=== PATIENT | female | born 1960 | race Caucasian/White ===

== ENCOUNTER 2019-05-20 06:28 | Observation (INO) | payer OTHER, SELFPAY ==
[2019-05-20] VITALS (7 sets, daily range): BP systolic 124–140; BP diastolic 53–77; PULSE 61–69; RESP 8–18; TEMP 36.1–37.1; O2SAT 96–100; BMI 25.7
--- NOTE | ~2019-05-20 | US_ITS ---
EXAMINATION: US right upper quadrant DATE: 05/20/2019 07:48 INDICATION: Epigastric abdominal pain. TECHNIQUE: Multiple grayscale and Doppler ultrasound images of the abdomen were obtained. COMPARISON: Ultrasound abdomen 01/11/2014 FINDINGS: The visualized portions of the head, body, and tail of the pancreas are normal. The liver i s normal without focal lesion. No liver surface nodularity. The gallbladder is absent. The common josé miguel t is normal and measures 10 mm. There is normal flow in main portal vein. IMPRESSION: 1. Normal right upper quadrant ultrasound status post cholecystectomy. Reviewed, dictated and finalized at location A. GROUND ATTENDANT
--- NOTE | ~2019-05-20 | MR_ITS ---
EXAMINATION: MR MRCP wo/w con/w 3D wo ind DATE: 05/21/2019 09:52 INDICATION: Acute pancreatitis. TECHNIQUE: Magnetic resonance imaging (MRI) of the abdomen was performed without and with 13 mL Multi Jyoti intravenous contrast. Sequences included coronal T2-weighted FS FSE, coronal T2-weighted FSE, a xial T1-weighted LAVA, coronal FS FIESTA, axial dual-echo T1-weighted SPGR, coronal lava-FLEX, sagitt al T2-weighted FSE, axial T2-weighted FSE, and axial DWI. Thick-slab T2-weighted FSE images were obta ined for magnetic resonance cholangiopancreatography (MRCP). Maximum intensity projection 3-D reconst ructions of the volumetric data were created by the technologist. Postcontrast sequences included cor onal LAVA-flex and time course of axial T1-weighted LAVA. COMPARISON: Ultrasound 05/20/2019 FINDINGS: ABDOMEN MRI: The liver is normal. There are changes of cholecystectomy with residual gallbladder neck with 3 mm stone. The spleen, pancreas, adrenal glands, and kidneys are normal. There are no dilated loops of bowel. There are no pathologically enlarged lymph nodes. There is no free intraperitoneal fl uid. ABDOMEN MRCP: The common duct is normal and measures 9 mm. No choledocholithiasis. IMPRESSION: 1. No choledocholithiasis. 2. 3 mm stone in the residual gallbladder neck status post cholecystectomy. Reviewed, dictated and finalized at location A. ICAL REGISTERED NURSE
--- NOTE | ~2019-05-20 | XR_ITS ---
EXAMINATION: XR chest 2V DATE: 05/20/2019 07:29 INDICATION: Chest pressure. TECHNIQUE: Frontal and lateral views of the chest were obtained. COMPARISON: Chest 2 views 06/10/2015 FINDINGS: The chest demonstrates clear lungs without pneumonia, pleural effusion, or pneumothorax. Th e heart size is normal. Partially visualized is a stent in the abdomen. IMPRESSION: 1. No acute cardiopulmonary disease. Reviewed, dictated and finalized at location A. S REPRESENTATIVE MEATS
--- NOTE | 2019-05-20 06:41 | ECG_ITS ---
Measurements Intervals [place] Rate: 63 P: 56 [place]: 143 QRS: 23 QRSD: 86 T: 63 QT: 420 QTc: 433 Interpretive Statements SINUS RHYTHM WITH SINUS ARRHYTHMIA BASELINE ARTIFACT- I, II, III, AVL, AVF BORDERLINE ECG Electronically Signed On 05-20-2019 7:00:48 PROFESSOR OF PATHOLOGY by Gary Kraft D.O.
[2019-05-20 06:57] LABS: Basophils Percent Auto 0.5 % (0.2-1.2); Eosinophils Absolute Auto 0.1 K/mm3 (0-0.3); Eosinophils Percent Auto 1.4 % (0-4.4); Hematocrit 46.4 % (37.0-47.0); Hemoglobin 15.3 g/dL (12.0-15.0); Immature Granulocyte Absolute 0.01 K/mm3 (0.00-0.031); Immature Granulocyte Percent A 0.1 % (0-0.5); Lymphocytes Absolute Auto 1.46 K/mm3 (0.9-3.2); Lymphocytes Percent Auto 16.6 % (18.3-44.2); Mean Corpuscular Hemoglobin 29.3 pg (26-34); Mean Corpuscular Volume 88.9 fl (80-100); Mean Platelet Volume 10.3 fl (7.4-10.4); Monocytes Absolute Auto 0.7 K/mm3 (0.1-0.6); Monocytes Percent Auto 8.4 % (2.6-8.5); Neutrophils Absolute Auto 6.4 K/mm3 (1.3-6.7); Platelet Count Result 295 k/mm3 (150-375); Red Blood Count 5.22 M/mm3 (4.2-5.4); Red Cell Distribution Width 13.9 % (11.5-14.5); White Blood Count 8.8 K/mm3 (4.5-10.0)
[2019-05-20 07:11] LABS: Alanine Aminotransferase 28 U/L (4-35); Albumin Level 4.5 g/dL (3.5-5.1); Alkaline Phosphatase 93 U/L (38-126); Aspartate Amino Transferase 31 U/L (14-36); Bilirubin,Total 0.5 mg/dL (0.2-1.3); Blood Urea Nitrogen 24 mg/dL (7-17); Calcium 9.4 mg/dL (8.4-10.2); Carbon Dioxide 27 mmol/L (22-30); Chloride 101 mmol/L (98-107); Estimated Glomerular Filt Rate > 60; Glucose 125 mg/dL (65-105); Potassium 3.9 mmol/L (3.4-5.0); Sodium 139 mmol/L (137-145)
[2019-05-20 07:19] LABS: Lipase 2323 U/L (23-300)
[2019-05-20 07:22] LABS: Prothrombin Time 12.6 Seconds (11.1-14.7); Troponin I < 0.012 ng/mL (0.000-0.034)
[2019-05-20 07:23] LABS: Partial Thromboplastin Time 27.2 SECONDS (22.3-36.8)
--- NOTE | 2019-05-20 08:55 | ED.ABDPAIN ---
HPI - Abdominal Pain General Chief Complaint: Chest Pain Stated Complaint: cp Time Seen by Provider: 05/20/19 06:41 Source: patient Mode of arrival: ambulatory Limitations: no limitations History of Present Illness HPI narrative: Patient is a 58-year-old female who presents to the emergency department complaint of lower chest/epigastric abdominal pain. Patient reports onset of severe pain at 3:00 this morning. Patient has been noticing pressure in that area for the last 5 to 6 days that has been mild in nature. Patient describes the pain she is having currently as a constricting/squeezing pain that has been very colicky in terms of its intensity. Patient denies radiation of pain. She does report some mild left upper quadrant pain today as well. Patient denies any cough, shortness of breath, nausea, vomiting, fever, chills, or sweats. Patient does currently have a bile duct stent in place that is scheduled to be removed on June [address] Graves in [facility]. Patient had that placed a couple of months ago after undergoing cholecystectomy for gangrenous cholecystitis. MD elicited complaint: other (epigastric pain) Pertinent past history: other (recent cholecystectomy and bile duct stent) Onset (ago): day(s) Pain Consistency: colicky Location: epigastric Quality: other (squeezing/constricting) Migration to: no migration Exacerbating factors: nothing Relieving factors: nothing Associated symptoms: denies other symptoms Related Data Home Medications Medication Instructions Recorded Confirmed acyclovir 05/20/19 atorvastatin 05/20/19 diltiazem HCl PO 05/20/19 nitroglycerin mg 05/20/19 potassium chloride meq PO 05/20/19 spironolactone 05/20/19 Allergies Allergy/AdvReac Type Severity Reaction Status Date / Time tetracycline Allergy Mild UNKNOWN Verified 10/08/17 07:48 REACTION Penicillins AdvReac Mild FLUSHING Verified 10/01/17 17:43 Review of Systems Review of Systems: All systems reviewed & are unremarkable except as noted in HPI and below Constitutional: Constitutional: Denies chills, Denies excessive sweating and Denies fever(s) Cardiovascular: Cardiovascular: Reports chest pain Respiratory: Respiratory: Denies cough and Denies dyspnea Gastrointestinal: Gastrointestinal: Reports abdominal pain, Denies nausea and Denies vomiting PMFSH Past Medical History Medical History (Updated 05/20/19 @ 09:29 by Belen Guzmán MD) Acalculous cholecystitis Hyperlipidemia PVCs (premature ventricular contractions) Surgical History Surgical History (Updated 05/20/19 @ 09:17 by Belen Guzmán MD) History of biliary duct stent placement History of cardiac catheterization no CAD History of cholecystectomy Social History Social History (Updated 05/20/19 @ 09:17 by Belen Guzmán MD) Smoking status: Never smoker Alcohol use details: rare Exam Const: General: cooperative, no acute distress and alert Nutritional Appearance: well nourished Orientation/consciousness: patient oriented x3 Limitations: no limitations HENMT: Mouth: Yes lip normal and Yes moist mucous membranes Resp: Effort & Inspection: normal respiratory effort Auscultation: clear to auscultation bilaterally Cardio: Rate: regular rate Rhythm: regular rhythm GI: GI Palp: Yes Soft to palpation and Yes Tenderness to palpation present (GI) (Epigastric) Auscultation: normal bowel sounds Skin: General skin exam: normal color Neuro: General: patient oriented x3 Cognition (Neuro): normal cognition Speech: normal speech Extrem: General: normal to inspection, full ROM and no clubbing, cyanosis or edema Psych: Mental Status: mental status grossly normal Affect: normal affect Attitude: cooperative Course Course Emergency Course: Patient with findings of acute pancreatitis. No evidence of biliary obstruction noted on labs and imaging. Case discussed with patient's retail assistant store manager from her
[2019-05-20] MEDS: ONDANSETRON INJ 4 MG/2 ML VIAL IV PUSH ×2 (09:47→20:06)
[2019-05-20] MEDS: PANTOPRAZOLE SODIUM IV 40 MG VIAL IV PUSH (09:48)
[2019-05-20] MEDS: LACTATED RINGERS 1,000 ML 999 ML IV CONT (09:50)
--- NOTE | 2019-05-20 10:05 | PC.NURSE ---
This patient, Arti Gutierrez, was admitted to Medical Room 344-01. Patient/family oriented to hospital policies and general routines including ID bracelet, bed and alarms, visiting hours, pain management, procedures, bathroom and other care routines, personal items, smoking policy, room service/diet, and visiting hours. Valuables list has been completed. Information on how to activate the Rapid Response Team has been discussed. Patient/Family are encouraged to report perceived risks to care and to ask questions if they do not understand what they are told or what they should do.
[2019-05-20 10:07] LABS: Troponin I < 0.012 ng/mL (0.000-0.034)
[2019-05-20] MEDS: LACTATED RINGERS 1,000 ML 150 ML IV CONT ×2 (12:07→18:43)
--- NOTE | 2019-05-20 12:29 | PM.IMHP ---
H&P: HPI History of Present Illness Chief complaint: acute pancreatitis Narrative: Arti Gutierrez is a 58 year old female was in her usual state health until about 1 week ago. She developed a lower substernal epigastric pressure the seem to be worse in the morning and evening but not so bad during the day when she was working. Pressure was mild and did not radiate. It was not worsened by eating position or activity or breathing. She denied fevers chills or sweats. No change in bowel function or bladder function. On May 20 she awakened with a sharp epigastric to substernal discomfort that did not radiate. It waxed and wane in a cramping sort of fashion. There was no associated nausea or vomiting. No fevers chills or diarrhea. It was not worsened by position movement or activity. There was no associated shortness of breath or diaphoresis. She took sublingual nitroglycerin with no relief. Because of the severity of the pain she presented the emergency department. In late February she was admitted to another hospital for upper abdominal discomfort with nausea vomiting. It did not radiate. She had a low-grade fever of 100. No chills or sweats. She was treated with antibiotics for acalculous cholecystitis. She then underwent a cholecystectomy and had a postoperative bile leak. She underwent ERCP with biliary stenting and the leak resolved. Within the past several months she did have a coronary angiogram that was negative for coronary disease. She takes diltiazem for mildly elevated blood pressure and for PVCs which caused bothersome palpitations. Review of Systems Review of Systems: All systems reviewed & are unremarkable except as noted in HPI and below PMFSH Past Medical History Medical History (Updated 05/20/19 @ 12:42 by Marcelino Arevalo MD) Acalculous cholecystitis Hyperlipidemia Hypertension, essential PVCs (premature ventricular contractions) Surgical History Surgical History (Updated 05/20/19 @ 12:45 by Marcelino Arevalo MD) History of biliary duct stent placement History of cardiac catheterization no CAD History of cholecystectomy History of tonsillectomy Family History Family History (Updated 05/20/19 @ 12:47 by Marcelino Arevalo MD) Mother , at age 53 Rheumatic aortic disease Congestive heart failure Father , at age 94 Breast cancer in male Dementia Sibling Fibromyalgia Sibling Malignant neoplasm of prostate Parkinson disease Social History Social History (Updated 05/20/19 @ 12:48 by Marcelino Arevalo MD) Social History: . 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 Smoking status: Never smoker Second hand tobacco smoke exposure: Yes (childhood) Alcohol intake: current Drinks per week: 0 Alcohol use details: rare Substance use type: does not use Living arrangements: with family Occupation/Education: occupation Gender identity (if verbalized by the patient): Female Spiritual care concerns: No Agree to blood products: Yes Meds Home Medications and Allergies Home Medications Medication Instructions Recorded Confirmed Type aspirin [Aspir-81] 81 mg PO DAILY 05/20/19 05/20/19 History atorvastatin 10 mg PO DAILY 05/20/19 05/20/19 History diltiazem HCl 300 mg PO DAILY 05/20/19 05/20/19 History magnesium 200 mg PO DAILY 05/20/19 05/20/19 History multivitamin 1 tablet PO DAILY 05/20/19 05/20/19 History nitroglycerin 0.4 mg SUBLINGUAL 6XD PRN 05/20/19 05/20/19 History potassium chloride 20 meq PO DAILY 05/20/19 05/20/19 History spironolactone 12.5 mg PO DAILY 05/20/19 05/20/19 History Allergies Allergy/AdvReac Type Severity Reaction Status Date / Time tetracycline Allergy Mild UNKNOWN Verified 10/08/17 07:48 REACTION Penicillins AdvReac Mild FLUSHING Verified 10/01/17 17:43 Vital Signs Vital Signs - 24 hr 05/20/19 06:50 05/20/19 07:15 05/20/19 09:17 Temperature 98.8 F 97.6 F 97.8 F Pu
--- NOTE | 2019-05-20 12:33 | ECG_ITS ---
Measurements Intervals [place] Rate: 62 P: 19 [place]: 156 QRS: 7 QRSD: 87 T: 41 QT: 425 QTc: 433 Interpretive Statements SINUS RHYTHM NORMAL ECG Electronically Signed On 05-20-2019 16:16:47 ASSISTANT COMMISSIONER by Gary Kraft D.O.
[2019-05-21] MEDS: LACTATED RINGERS 1,000 ML 150 ML IV CONT ×2 (01:46→08:27)
[2019-05-21 05:55] VITALS: BP 124/46; PULSE 64; RESP 17; TEMP 36.3; O2SAT 97
[2019-05-21 06:16] LABS: Hematocrit 43.1 % (37.0-47.0); Hemoglobin 14.1 g/dL (12.0-15.0); Mean Corpuscular HGB Conc 32.7 g/dl (32-36); Mean Corpuscular Hemoglobin 29.2 pg (26-34); Mean Corpuscular Volume 89.2 fl (80-100); Mean Platelet Volume 10.3 fl (7.4-10.4); Platelet Count Result 253 k/mm3 (150-375); Red Blood Count 4.83 M/mm3 (4.2-5.4); Red Cell Distribution Width 13.7 % (11.5-14.5); White Blood Count 8.7 K/mm3 (4.5-10.0)
[2019-05-21 06:31] LABS: Alanine Aminotransferase 32 U/L (4-35); Albumin Level 3.6 g/dL (3.5-5.1); Alkaline Phosphatase 82 U/L (38-126); Aspartate Amino Transferase 34 U/L (14-36); Bilirubin,Total 0.6 mg/dL (0.2-1.3); Blood Urea Nitrogen 11 mg/dL (7-17); Calcium 8.7 mg/dL (8.4-10.2); Carbon Dioxide 29 mmol/L (22-30); Chloride 103 mmol/L (98-107); Estimated CRCL calculation 70 ml/min; Estimated Glomerular Filt Rate > 60; Glucose 79 mg/dL (65-105); Lipase 134 U/L (23-300); Potassium 3.8 mmol/L (3.4-5.0); Sodium 140 mmol/L (137-145)
[2019-05-21] MEDS: LORAZEPAM INJ 2 MG/ML VIAL 1 MG IV PUSH (08:49)
--- NOTE | 2019-05-21 12:48 | PM.IMPN ---
Progress Note: A&P Assessment and Plan (1) Acute pancreatitis: Qualifiers: Acute pancreatitis complication: unspecified Pancreatitis type: unspecified pancreatitis type Qualified Code(s): K85.90 - Acute pancreatitis without necrosis or infection, unspecified Code(s): K85.90 - Acute pancreatitis without necrosis or infection, unspecified Status: Acute Assessment and Plan: With recent history of biliary manipulation as well as elevated lipase and epigastric pain this is most the most likely etiology of her pain MRCP with 3mm stone in residual cystic duct and no other stones Clear liquid diet Follow clinical progress (2) Hypertension, essential: Code(s): I10 - Essential (primary) hypertension Status: Acute Assessment and Plan: Monitor on dilitazem Subjective Date/time seen: 05/21/19 12:48 Interval history: Minimal epigatric pain and lower substernal pain. No n/v. No sob. No swelling. Palpitations resolved after dose of diltiazem. Review of Systems Review of Systems: All systems reviewed & are unremarkable except as noted in HPI and below Exam Narrative: Exam Narrative: HEENT: EOMI, PERRL, pharyngeal mucosa pink and intact NECK: No JVD, adenopathy, or thyromegaly CHEST: Clear to auscultation. Normal effort. HEART: NL S1/S2, regular, no murmur ABDOMEN: BS+, soft, MILDLY TENDER EPIGASTRIUM, without guarding or rebound, no mass, no bruits EXTREMITIES: No cyanosis, edema, or clubbing NEUROLOGIC: CN intact and symmetric to inspection. MUSCULOSKELETAL: Tone and strength symmetric. PSYCH: Alert. Oriented to person, place, and time. Objective Data Vital Signs Vital Signs: Vital Signs - 24 hr 05/20/19 14:52 05/20/19 22:00 05/21/19 05:55 Temperature 97.3 F L 97 F L 97.3 F L Pulse Rate 61 69 64 Respiratory Rate 18 16 17 Blood Pressure 124/53 L 140/65 124/46 L Pulse Oximetry 96 98 97 Intake/Output Intake/Output: Intake & Output 05/18/19 05/19/19 05/20/19 05/21/19 23:59 23:59 23:59 23:59 Intake Total 2200 2000 Output Total 1100 2300 Balance 1100 -300 Meds/Results Medications: Active Medications Generic Name Dose Route Start Last Admin Trade Name Freq PRN Reason Stop Dose Admin Diltiazem HCl 300 mg 05/20/19 21:00 05/20/19 22:57 Cardizem Cd PO 300 mg HS ESPINOZA Administration Lactated Ringer's 1,000 mls @ 150 mls/hr 05/20/19 09:20 05/21/19 08:50 Lr - Lactated Ringers Iv IV CONT 0 mls/hr .[id number] ESPINOZA Infusion Morphine Sulfate 4 mg 05/20/19 09:20 Morphine Sulfate Inj IV PUSH Q2H PRN Pain Rated 6 or Greater Ondansetron HCl 4 mg 05/20/19 09:20 05/20/19 20:06 Zofran Inj IV PUSH 4 mg Q4H PRN Administration Nausea Radiology Results: ITS Impressions Chest X-Ray 05/20/19 07:38 IMPRESSION: 1. No acute cardiopulmonary disease. Upper Quadrant Ultrasound 05/20/19 08:04 IMPRESSION: 1. Normal right upper quadrant ultrasound status post cholecystectomy. MRCP 05/21/19 09:53 IMPRESSION: 1. No choledocholithiasis. 2. 3 mm stone in the residual gallbladder neck status post cholecystectomy. Labs Labs: Laboratory Results - last 24 hr 05/21/19 05/21/19 05:55 05:55 WBC 8.7 RBC 4.83 Hgb 14.1 Hct 43.1 MCV 89.2 MCH 29.2 MCHC 32.7 RDW 13.7 Plt Count 253 MPV 10.3 Sodium 140 Potassium 3.8 Chloride 103 Carbon Dioxide 29 BUN 11 D Creatinine 0.60 L Estim Creat Clear Calc 70 Estimated GFR > 60 Glucose 79 Calcium 8.7 Total Bilirubin 0.6 AST 34 ALT 32 Alkaline Phosphatase 82 Total Protein 6.0 L Albumin 3.6 Lipase 134 Quality VTE Prophylaxis VTE prophylaxis: mechanical ordered
[2019-05-21 14:00] VITALS: BP 107/54; PULSE 64; RESP 16; TEMP 36.3; O2SAT 99
[2019-05-21 21:35] VITALS: BP 126/57; PULSE 69; RESP 18; TEMP 36.3; O2SAT 98
[2019-05-22 05:47] VITALS: BP 117/61; PULSE 60; RESP 20; TEMP 35.9; O2SAT 99
[2019-05-22 06:43] LABS: Hematocrit 44.7 % (37.0-47.0); Hemoglobin 14.3 g/dL (12.0-15.0); Mean Corpuscular Hemoglobin 29.1 pg (26-34); Mean Corpuscular Volume 90.9 fl (80-100); Mean Platelet Volume 11.3 fl (7.4-10.4); Platelet Count Result 245 k/mm3 (150-375); Red Blood Count 4.92 M/mm3 (4.2-5.4)
[2019-05-22 06:58] LABS: Alanine Aminotransferase 34 U/L (4-35); Albumin Level 3.9 g/dL (3.5-5.1); Alkaline Phosphatase 101 U/L (38-126); Aspartate Amino Transferase 41 U/L (14-36); Bilirubin,Total 0.6 mg/dL (0.2-1.3); Blood Urea Nitrogen 11 mg/dL (7-17); Calcium 9.1 mg/dL (8.4-10.2); Carbon Dioxide 27 mmol/L (22-30); Chloride 99 mmol/L (98-107); Estimated CRCL calculation 83 ml/min; Estimated Glomerular Filt Rate > 60; Glucose 84 mg/dL (65-105); Lipase 102 U/L (23-300); Potassium 3.6 mmol/L (3.4-5.0); Sodium 139 mmol/L (137-145)
[2019-05-22 09:15] VITALS: PULSE 60; RESP 20; O2SAT 99
[2019-05-22 14:00] VITALS: BP 123/54; PULSE 61; RESP 16; TEMP 36.7; O2SAT 99
--- NOTE | 2019-05-22 14:52 | PM.DS ---
DS: Diagnosis Admitting Diagnosis Admitting Diagnosis: Acute pancreatitis without necrosis or infection, unspecified Discharge Diagnosis (1) Acute pancreatitis: Qualifiers: Acute pancreatitis complication: unspecified Pancreatitis type: unspecified pancreatitis type Qualified Code(s): K85.90 - Acute pancreatitis without necrosis or infection, unspecified Code(s): K85.90 - Acute pancreatitis without necrosis or infection, unspecified Status: Acute Assessment and Plan: With recent history of biliary manipulation as well as elevated lipase and epigastric pain this is most the most likely etiology of her pain MRCP with 3mm stone in residual cystic duct and no other stones Low fat diet Keep f/u appt with Dr. Escobedo 06/02 See PCP as scheduled (2) Hypertension, essential: Code(s): I10 - Essential (primary) hypertension Status: Acute Assessment and Plan: Continue home regimen DS: Summary Hospital Course Reason for hospitalization: Abdominal pain Hospital Course: Patient presented with about 1 week of a till upper abdominal pressure the transition to a sharp upper abdominal pain. Was moderately severe. She presented the emergency department as was radiating into her lower chest as well. She was found to have negative right upper quadrant ultrasound except for prior cholecystectomy. Labs were unrevealing except for mild elevation of AST. Lipase was over 2000. It normalized overnight. Clear liquids were begun. Advanced to low-fat diet. Tolerated well on the day of discharge. Was up and about independently. On day prior to discharge MRCP showed a 3 mm stone in the residual cystic duct. No other stones or evidence of obstruction of the pancreatic duct or common bowel duct were seen. Liver architecture was normal. She was pain-free on the day of discharge. Note the patient has chronic intermittent vague chest discomfort for a month or so to time sometimes in in 3 or 4 months without it. She has been experiencing this. Nothing out of the ordinary for her. Her cardiac enzymes and EKG were unremarkable. Her channel opener outsoles Dr. Alberts is aware of this. She will contact him or go to the nearest emergency room if the pattern of her pain changes. Time Spent with Patient Time attestation: Total time spent providing and/or coordinating discharge services: 35 min Exam Narrative: Exam Narrative: HEENT: EOMI, PERRL, pharyngeal mucosa pink and intact NECK: No JVD, adenopathy, or thyromegaly CHEST: Clear to auscultation. Normal effort. HEART: NL S1/S2, regular, no murmur ABDOMEN: BS+, soft, nontender, without guarding or rebound, no mass, no bruits EXTREMITIES: No cyanosis, edema, or clubbing NEUROLOGIC: CN intact and symmetric to inspection. MUSCULOSKELETAL: Tone and strength symmetric. PSYCH: Alert. Oriented to person, place, and time. DS: Data Data Completed and Pending Labs on day of discharge: Labs from last 24 hours 05/22/19 05/22/19 05:31 05:31 WBC 9.0 RBC 4.92 Hgb 14.3 Hct 44.7 MCV 90.9 MCH 29.1 MCHC 32.0 RDW 14.0 Plt Count 245 MPV 11.3 H Sodium 139 Potassium 3.6 Chloride 99 Carbon Dioxide 27 BUN 11 Creatinine 0.50 L Estim Creat Clear Calc 83 Estimated GFR > 60 Glucose 84 Calcium 9.1 Total Bilirubin 0.6 AST 41 H ALT 34 Alkaline Phosphatase 101 Total Protein 7.0 Albumin 3.9 Lipase 102 Discharge Plan Discharge Attending physician on discharge: Marcelino Arevalo Discharging Clinician: Marcelino Arevalo Patient Disposition: Home, Self-Care Activity: as tolerated Diet: low fat Patient Instructions: Antibiotic Form Stand Alone Forms: General Discharge Information Follow-up/Referrals: Paul Noel MD [Primary Care Provider] - Keep Reg. Scheduled Appt. Gene Graves MD [Physician] - 06/02/19 (Keep scheduled appt for stent removal.) Discharge Medications: Continued
== END 2019-05-22 15:25 | disposition home or self-care (01) ==
LOC: ANHED 09:29 → ANH3MED 09:31
PROVIDERS: Admitting Provider Internal Medicine; Emergency Provider Emergency Medicine; PCP Family Medicine; Visit Provider Internal Medicine
DX: K85.90 Acute pancreatitis without necrosis or infection, unspecified (principal); K91.86 Retained cholelithiasis following cholecystectomy; I10 Essential (primary) hypertension; E78.5 Hyperlipidemia, unspecified
CPT/HCPCS: 36415; 71046; 74183; 76376; 76705; 80053; 83690; 84484; 85025; 85027; 85610; 85730; 93005; 96361; 96365; 96374; 96375; 96376; 99285; A9270; A9577; C9113; G0378; J0131; J2060; J2405; J7120

== ENCOUNTER 2019-09-16 12:56 | Outpatient (CLI) | payer OTHER, SELFPAY ==
--- NOTE | ~2019-09-16 | XR_ITS ---
EXAMINATION: XR chest 2V DATE: 09/16/2019 13:18 INDICATION: Contusion of lower anterior ribs on the left. TECHNIQUE: Frontal and lateral views of the chest were obtained. COMPARISON: Chest 2 views 05/20/2019 FINDINGS: There is mild scarring at the lung apices. No pleural effusion or pneumothorax. The heart s ize is normal. IMPRESSION: 1. Stable mild scarring at the lung apices. Reviewed, dictated and finalized at location A.
== END 2019-09-16 12:57 | disposition home or self-care (01) ==
PROVIDERS: PCP Family Medicine; Visit Provider Family Medicine
DX: S20.212A Contusion of left front wall of thorax, initial encounter (principal); R91.8 Other nonspecific abnormal finding of lung field
CPT/HCPCS: 71046

== ENCOUNTER → 2020-03-30 12:26 | Outpatient (CLI) | payer OTHER, SELFPAY ==
--- NOTE | ~2020-03-30 | MM_ITS ---
EXAMINATION: MM screening [facility] BI w berny HISTORY: Screening mammogram TECHNIQUE: Craniocaudal and mediolateral oblique 3-D tomosynthesis images were obtained and synthetic 2-D images were generated. CAD analysis was submitted and interpreted. COMPARISON: 10/31/2018, 03/29/2016, 03/20/2015 BREAST PARENCHYMAL COMPOSITION: There are scattered areas of fibroglandular density. FINDINGS: There is no evidence of suspicious mass, calcification, or architectural distortion to sugg est malignancy in either breast. There has been no suspicious interval change. IMPRESSION: 1. No mammographic evidence of malignancy. 2. Recommend routine screening mammography in one year. BI-RADS Category 1: Negative Reviewed, dictated and finalized at location A. ENSATION SPECIALIST
--- NOTE | ~2020-03-30 | DEXA_ITS ---
Bone Density Report Name: Arti Gutierrez Age: 59 Sex: Female Ethnicity: White Date of : 1960 Indication: postmenopausal; screening for osteoporosis; height loss; Referring Provider: Derian, Jody Gr Study: Bone densitometry was performed. Exam Date: March 30, 2020 Accession number: [id number] Bone Density: Region BMD T-score Z-score Classification AP Spine (L1-L4) 1.100 0.5 2.0 Normal Femoral Neck (Left) 0.775 -0.7 0.7 Normal Total Hip (Left) 0.955 0.1 1.2 Normal Femoral Neck (Right) 0.782 -0.6 0.8 Normal Total Hip (Right) 0.947 0.0 1.1 Normal Total Hip Mean 0.951 0.1 1.2 Normal World Health Organization criteria for BMD impression classify patients as: Normal (T-score at or above -1.0), Osteopenia (T-score between -1.0 and -2.5), or Osteoporosis (T-score at or below -2.5). 10-year Fracture Risk: FRAX not reported because: All T-scores for Spine Total, Hip Total, Femoral Neck at or above -1.0 Previous Exams: Region Exam Age BMD T-score BMD Change BMD Change Date g/cm2 vs Baseline vs Previous AP Spine(L1-L4) 03/30/2020 59 1.100 0.5 -0.056 -0.035 01/19/2014 53 1.135 0.8 -0.021 -0.021 08/18/2009 49 1.156 1.0 Total Hip(Left) 03/30/2020 59 0.955 0.1 -0.089 -0.080 01/19/2014 53 1.035 0.8 -0.009 -0.009 08/18/2009 49 1.045 0.8 Total Hip(Right) 03/30/2020 59 0.947 0.0 -0.065 -0.055 01/19/2014 53 1.003 0.5 -0.009 -0.009 08/18/2009 49 1.012 0.6 *Denotes significance at 95% confidence level, LSC for AP Spine = 0.022 g/cm2, LSC for Total Hip = 0.027 g/cm2 Clinical Information Provided by Patient: Patient maximum height was 64.0 Menopause Age: 49 No regular weight bearing exercise Onset of menses at age 12 Number of children 2 Impression: The patient has normal bone mass. No significant bone loss was observed. Discussion: BONE DENSITY IS ABOVE THE MINIMUM DESIRABLE LEVEL AT ALL SKELETAL SITES TESTED. This patient?s bone mineral density is above the minimum desirable level (T-score -1.0 or better) at all sites measured. The patient should follow a healthful lifestyle (good nutrition with adequate calcium and vitamin D, and appropriate weight-bearing exercise). Follow-Up: Consider repeating this study in 5 years or sooner if there is some new clinical indication. Rep
== END ==
PROVIDERS: PCP Family Medicine; Visit Provider Nurse Practitioner Obstetrics & Gynecology
DX: Z12.31 Encounter for screening mammogram for malignant neoplasm of breast (principal); Z78.0 Asymptomatic menopausal state
CPT/HCPCS: 77063; 77067; 77080

== ENCOUNTER → 2021-04-02 13:07 | Outpatient (CLI) | payer OTHER, SELFPAY ==
--- NOTE | ~2021-04-02 | MM_ITS ---
EXAMINATION: MM screening [facility] BI w berny HISTORY: Screening mammogram TECHNIQUE: Craniocaudal and mediolateral oblique 3-D tomosynthesis images were obtained and synthetic 2-D images were generated. CAD analysis was submitted and interpreted. COMPARISON: 03/30/2020, 10/14/2018, 03/29/2016 BREAST PARENCHYMAL COMPOSITION: There are scattered areas of fibroglandular density. FINDINGS: There is no evidence of suspicious mass, calcification, or architectural distortion to sugg est malignancy in either breast. There has been no suspicious interval change. IMPRESSION: 1. No mammographic evidence of malignancy. 2. Recommend routine screening mammography in one year. BI-RADS Category 1: Negative Reviewed, dictated and finalized at location A. F INFORMATION OFFICER
== END ==
PROVIDERS: Visit Provider Nurse Practitioner Obstetrics & Gynecology
DX: Z12.31 Encounter for screening mammogram for malignant neoplasm of breast (principal)
CPT/HCPCS: 77063; 77067

== ENCOUNTER 2021-05-21 00:07 | Day surgery (SDC) | payer OTHER, SELFPAY ==
[2021-05-09 10:40] VITALS: BMI 36.6
[2021-05-21] MEDS: LACTATED RINGERS 1,000 ML 150 ML IV CONT (10:01)
--- NOTE | 2021-05-21 10:07 | WPDANESEPPF ---
Anes - Initial Pre Proc Eval Procedure: Operation Date: 05/21/21 11:00 Proposed Procedures p Screening Colonoscopy - Rich Magaña MD Date/Time: 05/21/21 10:07 Surgeon: Rich Magaña MD Pre Op Diagnosis: neoplasm screening Patient Data Age: 60 Gender: F Height: 1.57 m Weight: 90.1 kg Allergies Allergy/AdvReac Type Severity Reaction Status Date / Time tetracycline Allergy Mild UNKNOWN Verified 05/21/21 09:51 REACTION Penicillins AdvReac Mild FLUSHING Verified 05/21/21 09:51 Home Medications Medication Instructions Recorded Confirmed Type aspirin [Aspir-81] 81 mg PO DAILY 05/20/19 05/09/21 History atorvastatin 10 mg PO DAILY 05/20/19 05/09/21 History multivitamin 1 tablet PO DAILY 05/20/19 05/09/21 History nitroglycerin 0.4 mg SUBLINGUAL 6XD PRN 05/20/19 05/09/21 History spironolactone 12.5 mg PO DAILY 05/20/19 05/09/21 History diltiazem HCl 360 mg PO DAILY 05/09/21 05/09/21 History docusate sodium [Colace] 100 mg PO DAILY 05/09/21 05/09/21 History magnesium 400 mg PO DAILY 05/09/21 05/09/21 History Patient hx anesthesia problems: none Family hx anesthesia problems: none Results Review: All pre-operative results and documents have been reviewed as part of the pre-operative evaluation. [facility] Past Medical History Medical History (Updated 05/21/21 @ 10:31 by Rich Magaña MD) Acalculous cholecystitis Hyperlipidemia Hypertension, essential PVCs (premature ventricular contractions) Surgical History Surgical History (Updated 05/20/19 @ 12:45 by Marcelino Arevalo MD) History of biliary duct stent placement History of cardiac catheterization no CAD History of cholecystectomy History of tonsillectomy Family History Family History (Updated 05/20/19 @ 12:47 by Marcelino Arevalo MD) Mother , at age 53 Rheumatic aortic disease Congestive heart failure Father , at age 94 Breast cancer in male Dementia Sibling Fibromyalgia Sibling Malignant neoplasm of prostate Parkinson disease Social History Social History (Updated 05/20/19 @ 12:48 by Marcelino Arevalo MD) Social History: . 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 Smoking status: Never smoker Second hand tobacco smoke exposure: Yes (childhood) Alcohol intake: current Drinks per week: 0 Alcohol use details: once a month Substance use: never Substance use type: does not use Living arrangements: with family Gender identity (if verbalized by the patient): Female Spiritual care concerns: No Agree to blood products: Yes Anes - Eval Final PreProcedure Day of Procedure 05/21/21 10:07 Patient weight: obese Heart: regular rate and rhythm Lungs: clear to auscultation and normal air movement Airway: Mallampati scale class II Neurological: alert and oriented Last oral intake: >/= 8 hours ASA classification: III Emergent: no Anesthetic plan: proceed Anesthesia type and monitoring: general GIVS and standard monitoring Results Review: All pre-operative results and documents have been reviewed as part of the pre-operative evaluation. Informed Consent: The patient's anesthetic plan and its attendant risks and benefits were discussed with the patient/family/POA. Questions were solicited and answers provided to the satisfaction of the patient/family/POA.
--- NOTE | 2021-05-21 10:29 | WPDGICN ---
Assessment and Plan Assessment and plan (1) Encounter for screening colonoscopy: Code(s): Z12.11 - Encounter for screening for malignant neoplasm of colon Status: Acute Assessment and Plan: Patient presents for screening colonoscopy. she does have a very distant history of colon polyps. Surveillance has been advised. (2) History of colon polyps: Code(s): Z86.010 - Personal history of colonic polyps Status: Acute Assessment and Plan: Patient did have a history of colon polyps more than 10 years ago. Surveillance colonoscopy will be performed at this time. (3) Constipation: Code(s): K59.00 - Constipation, unspecified Status: Acute Assessment and Plan: Patient reports intermittent ongoing constipation. Plan is for her to take fiber supplements on a daily basis. Consider MiraLax or other laxative if the 3 days goes by without a bowel movement. GI Consult Note Consult date/time: 05/21/21 10:29 HPI: Arti Gutierrez is a 60 year old female Presents for screening colonoscopy. Patient reports prior history of colon polyps more than 10 years ago. Most recent colonoscopy 2012 was unremarkable. Patient denies any blood in her stools. She does have a tendency towards constipation. She has occasionally taken fiber supplements. She has never taken laxatives. Her weight has remained stable. She denies any bleeding. Family history is noncontributory. Review of Systems Review of Systems: All systems reviewed & are unremarkable except as noted in HPI and below PMFSH Past Medical History Medical History (Updated 05/21/21 @ 10:31 by Rich Magaña MD) Acalculous cholecystitis Hyperlipidemia Hypertension, essential PVCs (premature ventricular contractions) Surgical History Surgical History (Updated 05/20/19 @ 12:45 by Marcelino Arevalo MD) History of biliary duct stent placement History of cardiac catheterization no CAD History of cholecystectomy History of tonsillectomy Family History Family History (Updated 05/20/19 @ 12:47 by Marcelino Arevalo MD) Mother , at age 53 Rheumatic aortic disease Congestive heart failure Father , at age 94 Breast cancer in male Dementia Sibling Fibromyalgia Sibling Malignant neoplasm of prostate Parkinson disease Social History Social History (Updated 05/20/19 @ 12:48 by Marcelino Arevalo MD) Social History: . Resides with . [place] at an [employer]. Smoking status: Never smoker Second hand tobacco smoke exposure: Yes (childhood) Alcohol intake: current Drinks per week: 0 Alcohol use details: once a month Substance use: never Substance use type: does not use Living arrangements: with family Gender identity (if verbalized by the patient): Female Spiritual care concerns: No Agree to blood products: Yes Meds Home Medications and Allergies Home Medications Medication Instructions Recorded Confirmed Type aspirin [Aspir-81] 81 mg PO DAILY 05/20/19 05/09/21 History atorvastatin 10 mg PO DAILY 05/20/19 05/09/21 History multivitamin 1 tablet PO DAILY 05/20/19 05/09/21 History nitroglycerin 0.4 mg SUBLINGUAL 6XD PRN 05/20/19 05/09/21 History spironolactone 12.5 mg PO DAILY 05/20/19 05/09/21 History diltiazem HCl 360 mg PO DAILY 05/09/21 05/09/21 History docusate sodium [Colace] 100 mg PO DAILY 05/09/21 05/09/21 History magnesium 400 mg PO DAILY 05/09/21 05/09/21 History Allergies Allergy/AdvReac Type Severity Reaction Status Date / Time tetracycline Allergy Mild UNKNOWN Verified 05/21/21 09:51 REACTION Penicillins AdvReac Mild FLUSHING Verified 05/21/21 09:51 Exam Narrative: Physical exam reveals patient to be alert. Vital signs stable. HEENT exam is unremarkable. Patient is anicteric. Lungs are clear to auscultation and percussion. Heart is without murmur or extra sounds. Abdominal exam bowel sounds ar
[2021-05-21] MEDS: SIMETHICONE ORAL SUSPENSION 20 MG/0.3 ML 30 ML BOTTLE 0.6 ML IRRIGATION (10:46)
[2021-05-21 10:56] VITALS: BP 128/73; PULSE 81; RESP 19; O2SAT 100
[2021-05-21 11:06] VITALS: BP 134/71; PULSE 71; RESP 19; O2SAT 100
[2021-05-21 11:16] VITALS: BP 147/85; PULSE 64; RESP 21; O2SAT 99
== END 2021-05-21 11:25 | disposition home or self-care (01) ==
PROVIDERS: PCP Urology; Visit Provider Internal Medicine Gastroenterology
PROC: 0DJD8ZZ Inspection of Lower Intestinal Tract, Via Natural or Artificial Opening Endoscopic (ICD-10-PCS; CPT 45378; principal; 2021-05-21 11:00)
DX: Z12.11 Encounter for screening for malignant neoplasm of colon (principal); K59.00 Constipation, unspecified; Z86.010 Personal history of colon polyps; I10 Essential (primary) hypertension; E78.5 Hyperlipidemia, unspecified; I49.3 Ventricular premature depolarization; Z79.82 Long term (current) use of aspirin; E66.9 Obesity, unspecified; Z68.36 Body mass index [BMI] 36.0-36.9, adult
CPT/HCPCS: 45378; J2704; J7120

== ENCOUNTER 2022-03-06 11:52 | Emergency (ER) | payer OTHER, SELFPAY ==
--- NOTE | 2022-03-06 12:04 | ED.SKABFB ---
HPI - Skin/Abscess/Foreign Bdy General Chief complaint: Skin/Abscess/Foreign Body Stated complaint: hives throughout body Time Seen by Provider: 03/06/22 12:04 Source: patient Mode of arrival: ambulatory Limitations: no limitations History of Present Illness HPI narrative: 61-year-old female presents with complaint of itchy rash to bilateral legs, trunk, and bilateral arms for 3 days. States that rash started after using MiraLax. Has used MiraLax in the past with no issues. Reports no use of any other new products or food. Taking Benadryl without relief. Denies difficulty swallowing. All systems reviewed and negative except as noted above. Related Data Home Medications Medication Instructions Recorded Confirmed aspirin 81 mg tablet,delayed 81 mg PO DAILY 05/20/19 03/06/22 release (Aspir-) atorvastatin 10 mg tablet 10 mg PO DAILY 05/20/19 03/06/22 multivitamin 1 tablet PO DAILY 05/20/19 03/06/22 spironolactone 25 mg tablet 12.5 mg PO DAILY 05/20/19 03/06/22 diltiazem HCl 360 mg 360 mg PO DAILY 05/09/21 03/06/22 capsule,extended release 24 hr docusate sodium 100 mg capsule 100 mg PO DAILY 05/09/21 03/06/22 (Colace) Allergies Allergy/AdvReac Type Severity Reaction Status Date / Time tetracycline Allergy Mild UNKNOWN Verified 03/06/22 11:55 REACTION Penicillins AdvReac Mild FLUSHING Verified 03/06/22 11:55 Review of Systems Review of Systems: CONSTITUTIONAL: Denies fever, chills, or sweats. EYES: Denies visual changes, redness, or discharge. ENT: Denies rhinorrhea, congestion, sore throat, or otalgia. CARDIOVASCULAR: Denies chest pain, palpitations, or edema. RESPIRATORY: Denies cough or dyspnea. GASTROINTESTINAL: Denies abdominal pain, nausea, vomiting, or diarrhea. GENITOURINARY: Denies dysuria or hematuria. SKIN: Reports itchy rash. MUSCULOSKELETAL: Denies back pain, joint pain, or myalgia. NEUROLOGIC: Denies headache, numbness, or weakness. PSYCHIATRIC: Denies anxiety or depression. All other systems reviewed are negative, except as documented in HPI. [facility] Past Medical History Medical History (Updated 03/06/22 @ 12:22 by Lima Camacho NP) Acalculous cholecystitis Hyperlipidemia Hypertension, essential PVCs (premature ventricular contractions) Surgical History Surgical History (Updated 05/20/19 @ 12:45 by Marcelino Arevalo MD) History of biliary duct stent placement History of cardiac catheterization no CAD History of cholecystectomy History of tonsillectomy Family History Family History (Updated 05/20/19 @ 12:47 by Marcelino Arevalo MD) Mother , at age 53 Rheumatic aortic disease Congestive heart failure Father , at age 94 Breast cancer in male Dementia Sibling Fibromyalgia Sibling Malignant neoplasm of prostate Parkinson disease Social History Social History (Updated 05/20/19 @ 12:48 by Marcelino Arevalo MD) Social History: . Resides with . [place] at an [email or web address]. Smoking status: Never smoker Second hand tobacco smoke exposure: Yes (childhood) Alcohol intake: current Drinks per week: 0 Alcohol use details: once a month Substance use: never Substance use type: does not use Gender identity (if verbalized by the patient): Female Spiritual care concerns: No Agree to blood products: Yes Comments At time of signature, agree with nursing past medical, surgical, social and family history. There is no relevant family history pertinent to the presenting complaint. Exam Narrative: GENERAL: This is a well-nourished, well-developed patient, in no apparent distress. HEAD: normocephalic, atraumatic. EYES: PERRL. Sclera clear/white. Vision is grossly intact. EARS: External ears normal NOSE: External nose normal NECK: Neck supple, non-tender without lymphadenopathy, masses or thyromegaly. CARDIOVASCULAR: Regular rate and rhythm without murmurs, gallops, or rubs. RESPIRATORY: Cl
[2022-03-06 12:05] VITALS: BP 135/63; PULSE 60; RESP 18; TEMP 36.4; O2SAT 99
== END 2022-03-06 12:25 | disposition home or self-care (01) ==
PROVIDERS: Emergency Provider Nurse Practitioner Family; PCP Hospitalist
DX: R21 Rash and other nonspecific skin eruption (principal); E78.5 Hyperlipidemia, unspecified; I10 Essential (primary) hypertension
CPT/HCPCS: 99213; G0463

== ENCOUNTER 2022-04-03 11:23 | Outpatient (CLI) | payer OTHER, SELFPAY ==
[2022-04-03 12:04] LABS: Anion Gap 6 mmol/L (8-16); Blood Urea Nitrogen 13 mg/dL (7-17); Calcium 9.1 mg/dL (8.4-10.2); Carbon Dioxide 32 mmol/L (22-30); Chloride 104 mmol/L (98-107); Estimated Glomerular Filt Rate > 60; Glucose 106 mg/dL (65-110); Potassium 4.6 mmol/L (3.4-5.0); Sodium 142 mmol/L (137-145)
== END 2022-04-03 11:24 | disposition home or self-care (01) ==
PROVIDERS: Anesthesiology; PCP Hospitalist; Visit Provider Obstetrics & Gynecology
DX: Z79.899 Other long term (current) drug therapy (principal); Z01.818 Encounter for other preprocedural examination
CPT/HCPCS: 36415; 80048

== ENCOUNTER 2022-04-04 11:18 | Emergency (ER) | payer OTHER, SELFPAY ==
[2022-04-04 11:25] VITALS: BP 131/72; PULSE 78; RESP 18; TEMP 36.7; O2SAT 97
--- NOTE | 2022-04-04 12:36 | ED.URI ---
HPI - URI/Sore Throat General Chief Complaint: Upper Respiratory Infection Stated Complaint: Cough,Congestion,Headache Source: patient Mode of arrival: ambulatory History of Present Illness HPI Narrative: This is a 61-year-old female that presents to our urgent care with complaints of a sore throat, runny nose, nasal and chest congestion, frontal and temporal pressure, patient notes that her cough sputum has been greenish in color. Patient notes that she has had symptoms for 14 days now and she has taken Zyrtec with no relief. The patient denies SOB, CP, palpitation, extremity numbness, lightheadedness, dizziness, constipation, diarrhea, chills, or fever. Related Data Home Medications Medication Instructions Recorded Confirmed aspirin 81 mg tablet,delayed 81 mg PO DAILY 05/20/19 04/04/22 release (Aspir-) atorvastatin 10 mg tablet 10 mg PO DAILY 05/20/19 04/04/22 multivitamin 1 tablet PO DAILY 05/20/19 04/04/22 spironolactone 25 mg tablet 12.5 mg PO DAILY 05/20/19 04/04/22 diltiazem HCl 360 mg 360 mg PO DAILY 05/09/21 04/04/22 capsule,extended release 24 hr docusate sodium 100 mg capsule 200 mg PO DAILY 05/09/21 04/04/22 (Colace) calcium polycarbophil 625 mg 1,250 mg PO DAILY 03/29/22 04/04/22 tablet (FiberCon) cetirizine 10 mg capsule (Zyrtec) 10 mg PO DAILY 03/29/22 04/04/22 magnesium 200 mg tablet 400 mg PO DAILY 03/29/22 04/04/22 Allergies Allergy/AdvReac Type Severity Reaction Status Date / Time tetracycline Allergy Mild UNKNOWN Verified 04/04/22 11:41 REACTION Penicillins AdvReac Mild FLUSHING Verified 04/04/22 11:41 Review of Systems Review of Systems: A 14 organ system Review of Systems was performed and pertinent positives included in the HPI, otherwise remaining ROS is negative. [facility] Past Medical History Medical History (Updated 04/04/22 @ 12:35 by LAURA Dahl) Acalculous cholecystitis Hyperlipidemia Hypertension, essential PVCs (premature ventricular contractions) Surgical History Surgical History (Updated 05/20/19 @ 12:45 by Marcelino Arevalo MD) History of biliary duct stent placement History of cardiac catheterization no CAD History of cholecystectomy History of tonsillectomy Family History Family History (Updated 05/20/19 @ 12:47 by Marcelino Arevalo MD) Mother , at age 53 Rheumatic aortic disease Congestive heart failure Father , at age 94 Breast cancer in male Dementia Sibling Fibromyalgia Sibling Malignant neoplasm of prostate Parkinson disease Social History Social History (Updated 05/20/19 @ 12:48 by Marcelino Arevalo MD) Social History: . Resides with . [place] at an [employer]. Smoking status: Never smoker Second hand tobacco smoke exposure: No Alcohol intake: current Drinks per week: 0 Alcohol use details: 2 DRINKS/MONTH Substance use: never Substance use type: does not use Gender identity (if verbalized by the patient): Female Spiritual care concerns: No Agree to blood products: Yes Exam Narrative: GENERAL: This is a well-nourished, well-developed patient, in no apparent distress. HEAD: normocephalic, atraumatic. Temporal and frontal lobe tenderness EYES: PERRL. Sclera clear/white. Vision is grossly intact. EARS: External ears normal, auditory canals clear and without drainage, TMs normal without perforation. Hearing grossly intact. NOSE: External nose normal with no obvious nasal discharge, nares without redness, no rhinorrhea. THROAT: Mucous membranes moist, posterior pharynx clear. NECK: Neck supple, non-tender without lymphadenopathy, masses or thyromegaly. CARDIOVASCULAR: Regular rate and rhythm without murmurs, gallops, or rubs. RESPIRATORY: Clear to auscultation. Breath sounds equal bilaterally. No wheezes, rales, or rhonchi. GASTROINTESTINAL: Abdomen soft, non-tender, nondistended. Bowel sounds are active. No hepato-splenomegaly, or palpable masses. No
== END 2022-04-04 12:36 | disposition home or self-care (01) ==
PROVIDERS: Emergency Provider Nurse Practitioner; PCP Hospitalist
DX: J32.9 Chronic sinusitis, unspecified (principal); E78.5 Hyperlipidemia, unspecified; I10 Essential (primary) hypertension; Z79.82 Long term (current) use of aspirin
CPT/HCPCS: 99213; G0463

== ENCOUNTER 2022-04-10 00:37 | Day surgery (SDC) | payer OTHER, SELFPAY ==
[2022-03-29 14:01] VITALS: BMI 34.2
--- NOTE | 2022-03-29 14:21 | PC.NURSE ---
PRE-OP INSTRUCTIONS PLEASE READ CAREFULLY Report to the Outpatient Waiting Room, entrance under the green pavilion located off [facility], at time _0600_ on date _04/10/22_. Planned Procedure Time: _0730_. Time changes happen often and if your time is changed the preop area will call you the afternoon before. - You and your visitor will be asked to self-screen and do not enter if you have any COVID symptoms. - Only one visitor is requested with a max of two and NO children visitors are allowed at this time. - The patient visitor may be requested to leave or wait in car when not with patient due to distancing restrictions. - A mask is required within the hospital. Patients may have clear liquids (water, carbonated beverages, clear teas, apple juice) until 3 hours prior to surgery (0430 AM) with a maximum of 20 ounces. - No food from midnight until time of surgery Take the following medications with a SIP of water the morning of surgery: _DILTIAZEM__ Medications to discontinue _ASPIRIN PER DR. MONSIVAIS'S INSTRUCTIONS_ Medications to discontinue per ANESTHESIA - _MULTIVITAMIN 3 DAYS PRIOR TO SURGERY, Date to take last dose 04/06/22_ Please no make-up, nail zambian, hairspray, perfume, deodorant, or body powder the day of surgery. No jewelry (including any body piercings) or valuables the day of surgery, leave them at home. Please take a shower or bath the night before, or the morning of, surgery with an antibacterial soap. Wear comfortable, loose fitting clothing. - Jewelry must be removed prior to entering the operating room. Rings and piercings that are not removed may be cut off. - The hospital will not accept responsibility for valuables. - Please leave all valuables, including medications, at home the day of surgery. If you are going home after surgery, a licensed transfer driver must drive you home. - NO public transportation without another adult if you receive anesthesia. - We recommend that an adult stay with you for 24 hours following discharge. - We also recommend that you do not drive, make important decision, drink alcoholic beverages, or take any drugs that were not prescribed by your health care provider for at least 24 hours after your discharge time. Follow any additional instructions given to you from your surgeon. If you or anyone in your household have experienced Covid symptoms in the past week, please notify your surgeon or the nurse liaison at the phone number below for possible testing. Telephone instructions given to _PATIENT_and asked if any additional questions and then verbalized understanding. Patient advised to call surgeon office or pre surgery nurse liaison [phone] if any additional questions.
--- NOTE | 2022-04-09 13:17 | WPDANESEPPF ---
Anes - Initial Pre Proc Eval Procedure: Operation Date: 04/10/22 07:30 Proposed Procedures p Hysteroscopy Dilation and Curettage - Viviana Gamez MD Date/Time: 04/09/22 13:17 Surgeon: Viviana Gamez MD Pre Op Diagnosis: post menopausal bleeding Patient Data Age: 61 Gender: F Height: 1.59 m Weight: 86.36 kg Allergies Allergy/AdvReac Type Severity Reaction Status Date / Time tetracycline Allergy Mild UNKNOWN Verified 04/10/22 06:06 REACTION Penicillins AdvReac Mild FLUSHING Verified 04/10/22 06:06 Home Medications Medication Instructions Recorded Confirmed Type aspirin 81 mg tablet,delayed 81 mg PO DAILY 05/20/19 04/10/22 History release (Aspir-) atorvastatin 10 mg tablet 10 mg PO DAILY 05/20/19 04/10/22 History multivitamin 1 tablet PO DAILY 05/20/19 04/10/22 History spironolactone 25 mg tablet 12.5 mg PO DAILY 05/20/19 04/10/22 History diltiazem HCl 360 mg 360 mg PO DAILY 05/09/21 04/10/22 History capsule,extended release 24 hr docusate sodium 100 mg capsule 200 mg PO DAILY 05/09/21 04/10/22 History (Colace) calcium polycarbophil 625 mg 1,250 mg PO DAILY 03/29/22 04/10/22 History tablet (FiberCon) cetirizine 10 mg capsule (Zyrtec) 10 mg PO DAILY 03/29/22 04/10/22 History magnesium 200 mg tablet 400 mg PO DAILY 03/29/22 04/10/22 History azithromycin 500 mg tablet 500 mg PO DAILY 10 days #10 tabs 04/04/22 04/10/22 Rx (Zithromax TRI-STEF) benzonatate 200 mg capsule 200 mg PO TID PRN cough #30 caps 04/04/22 04/10/22 Rx guaifenesin 400 mg tablet 400 mg PO Q4H PRN congestion #30 04/04/22 04/10/22 Rx tabs Patient hx anesthesia problems: post op nausea/vomiting Family hx anesthesia problems: none Results Review: All pre-operative results and documents have been reviewed as part of the pre-operative evaluation. [facility] Past Medical History Medical History (Updated 04/05/22 @ 00:01 by Background Denise) Acalculous cholecystitis Hyperlipidemia Hypertension, essential PVCs (premature ventricular contractions) Surgical History Surgical History (Updated 05/20/19 @ 12:45 by Marcelino Arevalo MD) History of biliary duct stent placement History of cardiac catheterization no CAD History of cholecystectomy History of tonsillectomy Family History Family History (Updated 05/20/19 @ 12:47 by Marcelino Arevalo MD) Mother , at age 53 Rheumatic aortic disease Congestive heart failure Father , at age 94 Breast cancer in male Dementia Sibling Fibromyalgia Sibling Malignant neoplasm of prostate Parkinson disease Social History Social History (Updated 05/20/19 @ 12:48 by Marcelino Arevalo MD) Social History: . Resides with . [place] at an [employer]. Smoking status: Never smoker Second hand tobacco smoke exposure: No Alcohol intake: current Drinks per week: 0 Alcohol use details: 2 DRINKS/MONTH Substance use: never Substance use type: does not use Living arrangements: with family Gender identity (if verbalized by the patient): Female Spiritual care concerns: No Agree to blood products: Yes Anes - Eval Final PreProcedure Day of Procedure 04/09/22 13:17 Patient weight: obese Heart: regular rate and rhythm Lungs: clear to auscultation Airway: Mallampati scale class II Neurological: alert and oriented Last oral intake: >/= 8 hours ASA classification: III Emergent: no Anesthetic plan: proceed Anesthesia type and monitoring: general GIVS and standard monitoring Results Review: All pre-operative results and documents have been reviewed as part of the pre-operative evaluation. Informed Consent: The patient's anesthetic plan and its attendant risks and benefits were discussed with the patient/family/POA. Questions were solicited and answers provided to the satisfaction of the patient/family/POA.
[2022-04-10] MEDS: ACETAMINOPHEN 500 MG TABLET 1000 MG PO (06:12)
[2022-04-10] MEDS: LACTATED RINGERS 1,000 ML 30 ML IV CONT (06:28)
[2022-04-10 06:29] VITALS: BP 140/57; PULSE 60; RESP 16; TEMP 36.4; O2SAT 99
--- NOTE | 2022-04-10 07:12 | WPDHPUPDATE1 ---
History and Physical Update Update Date/Time: 04/10/22 07:12 History and Physical has been reviewed, including an updated exam of the patient. There are NO changes in the patient's condition. Risks, benefits, and alternatives have been discussed and questions answered. Patient agrees to proceed with procedure.
--- NOTE | 2022-04-10 07:14 | WPDHPUPDATE1 ---
History and Physical Update Update Date/Time: 04/10/22 07:14 History and Physical has been reviewed, including an updated exam of the patient. There are NO changes in the patient's condition. Risks, benefits, and alternatives have been discussed and questions answered. Patient agrees to proceed with procedure.
--- NOTE | 2022-04-10 07:18 | PM.IMHP ---
H&P: HPI History of Present Illness Date/Time: 04/10/22 07:18 Chief Complaint: Postmenopausal bleed Narrative: this patient is a 61-year-old female with postmenopausal bleeding. The office endometrial biopsy failed. We have agreed to perform hysteroscopy D&C at the hospital. She understands that at procedures have risk. She understands that injuries may occur that result in hospitalization, more surgery, and severe illness. She understands there is risk of hemorrhage and infection. She denies any chest pain or shortness of breath. She denies any nausea, vomiting, fever, chills. Review of Systems Review of Systems: All systems reviewed & are unremarkable except as noted in HPI and below Constitutional: Constitutional: Denies chills, Denies fatigue, Denies fever(s) and Denies weakness Eyes: Eyes: Denies blurry vision, Denies change in vision, Denies loss of peripheral vision, Denies loss of vision, Denies other visual disturbances and Denies eye pain ENT: Denies vertigo, Denies dizziness, Denies hearing loss, Denies mouth pain, Denies nasal obstruction, Denies neck mass and Denies neck pain Cardiovascular: Cardiovascular: Denies chest pain, Denies diaphoresis, Denies syncope, Denies leg edema and Denies dyspnea Respiratory: Respiratory: Denies chest congestion, Denies cough, Denies hemoptysis, Denies dyspnea and Denies wheezing Gastrointestinal: Gastrointestinal: Denies abdominal pain, Denies constipation, Denies diarrhea, Denies nausea and Denies vomiting Genitourinary: Genitourinary: Denies hematuria, Denies change in libido, Denies nocturia, Denies genital lesions, Denies flank pain and Denies urinary urgency Musculoskeletal: Musculoskeletal: Denies abnormal gait, Denies back pain, Denies myalgias, Denies arthralgias, Denies joint swelling, Denies muscle weakness and Denies neck pain Integumentary/Breasts: Skin/Breast: Denies swelling, Denies breast pain, Denies breast mass, Denies dry skin, Denies nipple discharge, Denies unusual bruising and Denies jaundice Neurologic: Denies Neuro-related abnormal movements, Denies Abnormal speech present, Denies abnormal gait, Denies behavioral changes, Denies confusion, Denies vertigo, Denies dizziness, Denies syncope, Denies loss of vision, Denies memory loss, Denies convulsions and Denies weakness Psychiatric: Psychiatric: Denies abnormal sleep pattern, Denies behavioral changes, Denies change in libido, Denies confusion, Denies depression, Denies anhedonia and Denies memory loss Endocrine: Endocrine: Reports no additional endocrine complaints, Denies change in libido and Denies fatigue Hematologic/Lymphatic: Hematologic/Lymphatic: Reports no additional hematologic/lymphatic complaints Allergic/Immunologic: Allergic/Immunologic: Reports no additional allergic/immunologic complaints and Denies wheezing PMFSH Past Medical History Medical History (Updated 04/10/22 @ 07:20 by Viviana Gamez MD) Acalculous cholecystitis Hyperlipidemia Hypertension, essential PVCs (premature ventricular contractions) Surgical History Surgical History (Updated 05/20/19 @ 12:45 by Marcelino Arevalo MD) History of biliary duct stent placement History of cardiac catheterization no CAD History of cholecystectomy History of tonsillectomy Family History Family History (Updated 05/20/19 @ 12:47 by Marcelino Arevalo MD) Mother , at age 53 Rheumatic aortic disease Congestive heart failure Father , at age 94 Breast cancer in male Dementia Sibling Fibromyalgia Sibling Malignant neoplasm of prostate Parkinson disease Social History Social History (Updated 05/20/19 @ 12:48 by Marcelino Areavlo MD) Social History: . Resides with . Eunice at an accounting firm. Smoking status: Never smoker Second hand tobacco smoke exposure: No Alcohol intake: current Drinks per week: 0 Alcohol use details: 2 DRINKS/MONTH Substance use: never Sub
[2022-04-10] MEDS: LIDOCAINE 1% BUFFERED WITH 8.4% SODIUM BICARB 1 ML SYRINGE 10 ML INFILTRATE (07:44)
[2022-04-10 07:56] VITALS: BP 109/46; PULSE 72; RESP 12; O2SAT 94
--- NOTE | 2022-04-10 08:20 | W.PM.PROC2 ---
Procedure Note - Detailed Date of Procedure 04/10/22 Pre-op Diagnosis post menopausal bleeding Post-op Diagnosis Same Procedure Performed Hysteroscopy D&C Surgeon Viviana Gamez MD Anesthesia MAC Indications abnormal uterine bleeding Findings normal vulval, vagina, and cervix, normal intrauterine cavity Description of Procedure the patient was taken the operating room. She was prepped and draped in the dorsal lithotomy position after induction of mac anesthesia. A speculum was placed in the vagina. The cervix was grasped with a tenaculum. The cervix was dilated about 1 cm. The hysteroscope was inserted. The intrauterine cavity and endocervix were evaluated. Hysteroscope was withdrawn. A medium-size curette was used to curettage all the surfaces were within the endometrial cavity. the sample was collected on Telfa and sent to pathology. The hysteroscope was reinserted and the above findings were noted. Patient tolerated the procedure well. The speculum and tenaculum were removed. She was taken recovery room in stable condition. Sponge lap and needle counts were correct x2. Estimated Blood Loss 40 Drains No Packing No Pathology Yes Complications No immediate complications Condition Stable Disposition PACU
[2022-04-10 08:41] VITALS: BP 117/53; PULSE 53; RESP 12; O2SAT 98
[2022-04-10 09:00] VITALS: BP 123/55; PULSE 51; RESP 12
== END 2022-04-10 09:32 | disposition home or self-care (01) ==
PROVIDERS: PCP Hospitalist; Visit Provider Obstetrics & Gynecology
PROC: 0U5B8ZZ Destruction of Endometrium, Via Natural or Artificial Opening Endoscopic (ICD-10-PCS; CPT 58563; principal; 2022-04-10 07:30)
DX: N95.0 Postmenopausal bleeding (principal); I10 Essential (primary) hypertension; E78.5 Hyperlipidemia, unspecified; I49.3 Ventricular premature depolarization; Z79.82 Long term (current) use of aspirin; E66.9 Obesity, unspecified; Z68.34 Body mass index [BMI] 34.0-34.9, adult
CPT/HCPCS: 58558; 36415; 80048; 88305; A9270; J1100; J2250; J2405; J2704; J3010; J7030; J7120

== ENCOUNTER → 2022-06-18 14:03 | Outpatient (CLI) | payer OTHER, SELFPAY ==
--- NOTE | ~2022-06-18 | MM_ITS ---
EXAMINATION: MM screening [facility] BI w berny HISTORY: Screening mammogram TECHNIQUE: Craniocaudal and mediolateral oblique 3-D tomosynthesis images were obtained and synthetic 2-D images were generated. CAD analysis was submitted and interpreted. COMPARISON: 04/02/2021, 03/30/2020, 10/14/2018 BREAST PARENCHYMAL COMPOSITION: There are scattered areas of fibroglandular density. FINDINGS: No suspicious mass, calcification, or architectural distortion are identified in either isiaas ast to suggest malignancy. There has been no suspicious interval change. IMPRESSION: 1. No mammographic evidence of malignancy. 2. Recommend routine screening mammography in one year. BI-RADS Category 1: Negative Reviewed, dictated and finalized at location A. EMIC AFFAIRS COORDINATOR
== END ==
PROVIDERS: PCP Hospitalist; Visit Provider Obstetrics & Gynecology
DX: Z12.31 Encounter for screening mammogram for malignant neoplasm of breast (principal)
CPT/HCPCS: 77063; 77067

== ENCOUNTER 2023-10-22 13:11 | Outpatient (CLI) | payer MEDICARE, SELFPAY ==
--- NOTE | ~2023-10-22 | MM_ITS ---
EXAMINATION: MM screening [facility] w [facility] HISTORY: Screening TECHNIQUE: Craniocaudal and mediolateral oblique 3-D tomosynthesis images were obtained and synthetic 2-D images were generated. CAD analysis was submitted and interpreted. COMPARISON: Comparison to multiple prior studies sequentially, with oldest reviewed study dated 10/2014. BREAST PARENCHYMAL COMPOSITION: Not dense: There are scattered areas of fibroglandular density. FINDINGS: There is no evidence of suspicious mass, calcification, or architectural distortion to sugg est malignancy in either breast. There has been no suspicious interval change. IMPRESSION: 1. No mammographic evidence of malignancy. 2. Recommend routine screening mammography in one year. BI-RADS Category 1: Negative Reviewed, dictated and finalized at location B.
== END 2023-10-22 13:12 ==
LOC: MICIMG 13:12
PROVIDERS: PCP Hospitalist; Visit Provider Obstetrics & Gynecology
DX: Z12.31 Encounter for screening mammogram for malignant neoplasm of breast (principal)
CPT/HCPCS: 77063; 77067

== ENCOUNTER 2025-01-03 13:56 | Outpatient (CLI) | payer MEDICARE, SELFPAY ==
--- NOTE | ~2025-01-03 | MM_ITS ---
EXAMINATION: MM screening [facility] w [facility] HISTORY: Screening TECHNIQUE: Craniocaudal and mediolateral oblique 3-D tomosynthesis images were obtained and synthetic 2-D images were generated. CAD analysis was submitted and interpreted. COMPARISON: 06/18/2022 BREAST PARENCHYMAL COMPOSITION: Not Dense: The breasts are almost entirely fatty. FINDINGS: There is no evidence of suspicious mass, calcification, or architectural distortion to suggest malignancy. There has been no suspicious interval change. IMPRESSION: 1. No mammographic evidence of malignancy. Recommend routine screening mammography in one year. BI-RADS Category 2: Benign finding(s) Reviewed, dictated and finalized at location Q. IMPRESSION: 1. No mammographic evidence of malignancy. Recommend routine screening mammogra phy in one year. BI-RADS Category 2: Benign finding(s)
== END 2025-01-03 13:57 | disposition home or self-care (01) ==
LOC: MICIMG 13:58
PROVIDERS: PCP Hospitalist; Visit Provider Obstetrics & Gynecology
DX: Z12.31 Encounter for screening mammogram for malignant neoplasm of breast (principal)
CPT/HCPCS: 77063; 77067

== ENCOUNTER 2025-04-09 12:35 | Emergency (ER) | payer MEDICARE, SELFPAY ==
--- OUTSIDE RECORDS SUMMARY | 2025-04-09 12:38 | XMS_ITS | Clinical Summary ---
Author Organization [facility] Address [address] [place] [id number] Care Team Providers Care Road Mender Name Role Phone Paul Noel MD Primary Care Provider [phone] Allergies Active Allergy Reactions Criticality Noted Date Comments Penicillins Rash,Redness Low 06/01/2019 Tetracycline Unknown High 06/01/2019 Medications dilTIAZem CD 300 MG 24 hr capsule Take 300 mg by mouth daily. Active potassium chloride CR 20 MEQ tablet Take 20 mEq by mouth 2 (two) times daily. Active spironolactone 25 MG tablet Take 12.5 mg by mouth daily. Active atorvastatin 10 MG tablet Take 10 mg by mouth nightly at bedtime. Active magnesium oxide 400 (241.3 Mg) MG tablet Take 400 mg by mouth daily. Active aspirin EC (ASPIRIN EC) 81 MG tablet Take 81 mg by mouth daily. Active Multiple Vitamins-Minera ls (MULTIVITAL OR) Active Family History Medical History Relation Comments Cancer Father Rheumatic Fever Mother Relation Status Comments Father Mother Social History Tobacco Use Types Packs/Day Years Used Date Smoking Tobacco: Never Smokeless Tobacco: Never Alcohol Use Standard Drinks/Week Comments Yes 0 (1 standard drink = 0.6 oz pur e alcohol) rare Humiliation, Afraid, Rape, and Kick questionnair e Answer Date Recorded Fear of Current or Ex-Partner Patient declined 0 06/01/2019 Emotionally Abused Patient declined 06/01/2019 Physically Abused Patient declined 06/01/2019 Sexually Abused Patient declined 06/01/2019 Comments No Sex and Gender Information Value Date Recorded Sex Assigned at Not on file Legal Sex Female 6:13 PM CDT Gender Identity Not on file Sexual Orientation Not on file Last Filed Vital Signs Vital Sign Reading Time Taken Comments Blood Pressure 125/58 06/02/2019 9:45 AM FLOOR ASSEMBLER Pulse 55 06/02/2019 9:45 AM FLOOR ASSEMBLER Temperature 36.4 C (97.5 F) 06/02/2019 8:45 AM FLOOR ASSEMBLER Respiratory Rate 16 06/02/2019 9:45 AM FLOOR ASSEMBLER Oxygen Saturation 99% 06/02/2019 9:45 AM FLOOR ASSEMBLER Inhaled Oxygen Concentration - - Weight 64.9 kg (143 lb) 06/01/2019 8:24 AM FLOOR ASSEMBLER Height 160 cm (5' 3) 06/01/2019 8:24 AM FLOOR ASSEMBLER Body Mass Index 25.33 06/01/2019 8:24 AM FLOOR ASSEMBLER Plan of Treatment Health Maintenance Due Date Last Done Comments Colorectal Cancer Screening Colonoscopy (10 Years) 1958 Hepatitis C 1976 DTaP, Tdap and Td Vaccines ( 1 - Tdap) 1977 Mammogram Screening 1998 Pneumococcal Vaccine: 50+ Ye ars (1 of 1 - PCV) 2008 Zoster Vaccines (1 of 2) 2008 Dexa Scan (General) 2023 COVID-19 Vaccine (1 - 2024-2 6 season) 2024 Influenza Adult (#1) 2025 RSV Immunization or 60+ Years (1 - 1-dose 75+ series) 2033 Hepatitis A Vaccines Aged Out No long er eligible based on patient's age to complete this topic Meningococcal B Vaccine Aged Out No l onger eligible based on patient's age to complete this topic Meningococcal Vaccine Aged Out No lorrie cathie eligible based on patient's age to complete this topic RSV Immunizations Under 20 Months Aged Out No longer eligible based on patient's age to complete [place] [address] [address] MUR[address] Care Teams Road Mender Relationship Specialty Start Date End Date Paul Noel MD [address] [place] [id number] PCP - General FAMILY PRACTICE 05/28/19
--- OUTSIDE RECORDS SUMMARY | 2025-04-09 12:38 | XMS_ITS | Encounter Summary ---
Author Organization [facility] Address [address] [place] [address] Phone Care Team Providers Care Thread Milling Machine Set Up Operator Name Role Phone Paul Noel MD Unavailable [phone] Chandu Bar MD, Niels Liang Primary Care Provide r Encounter Details Date Type Department Care Team (Late st Contact Info) Description 02/11/2025 Results Follow-Up [facility] Cardiology [address] [facility] [address] [place] [address] Yamilet Mercado RN Lipid panel, Basic metabolic panel, CBC with auto differential, Additional followed-up results: 2 Social History Tobacco Use Types Packs/Day Years Used Date Smoking Tobacco: Never Passive Smoke Exposure: Never Smokeless Tobacco: Never Alcohol Use Standard Drinks/Week Comments Yes 0 (1 standard drink = 0.6 oz pur e alcohol) Socially AUDIT-C Answer Date Recorded Q1: How often do you have a drink containing alc ohol? 2-4 times a month 07/21/2024 Q2: How many drinks containi ng alcohol do you have on a typical day when you are drinking? 1 or 2 07/21/2024 Q3: How often do you have si x or more drinks on one occasion? 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
--- OUTSIDE RECORDS SUMMARY | 2025-04-09 12:38 | XMS_ITS | Data Portability ---
Author Organization [facility] Address [address] [place] [address] Care Team Providers Care Machine Group Leader Name Role Phone JEREMY DAVID Primary Care Provider Assessment Encounter Date Assessment Date Assessment LastModified by Organization Details LastModified Time 06/17/2023 06/17/2023 Annual gynecological exam performed. Patient will come back in a year unless there are new symptoms. [email or web address] Not available 06/17/2023 10:15:40 Plan of Treatment Reminders Order Date Submit Date Provider Last Modified By Organization Details Last Modified Time Details Appointments None recorded. Lab test, urine 2021 022 [email or web address] [facility], [address], [place], [address], 16:09:04 Referral urogynecolo gist referral 2023 024 CLAUDIO Allen MD, [address] [facility] [address], [place], [address], 15:55:45 Procedures None recorded. Surgeries dilation and curettage with hysteroscop y (SURG) 2021 022 CLAUDIO Mitchell Surgery [facility], [address], [place], [address], 09:28:40 Imaging MAMMO, screening, bilateral 2023 024 [email or web address] [facility], [address], [place], [address], 4 15:07:27 Medication Orders None recorded. Patient TargetsNo targets recorded. Patient InstructionsNo instructions recorded. Reason for Referral Urogynecologist Referral for Nocturia Referring Physician: Jody Menard, [employer], Encounter Date: 06/17/2023 Results Created Date Observation Date Name Description Value Unit Range Abnormal Flag Note LastModifiedBy Organization Detail LastModifiedTime 02/09/20 22 02/08/2022 pregn linda test, urine HCG negati ve Not Available [facility] [address], [place], [address], 02/08/2022 16:08:49 06/17/19 24 06/17/2023 IMAGE GUIDE D PAP AND HPV REGAR DLESS image guided Pap, HPV regardless of Pap result SEE RESULT S BELOW CASE REPOR T: Cytol ogy Gynec ologi artem Repor t Case: [id number] Autho breann sandoval Provi soco: Jono Bassett Colle cted: 06/16 1051 PIPE FITTER SOFT COPPER Order ing Locat ion: [place] [facility] Recei cammie: 06/17 0644 First Scree n: Yecenia Burgess, CT Speci men: Scree aleah Pap - Image d, Cervi x STATE MENT OF ADEQU ACY: Satis facto ry for evalu ation Trans forma tion zone compo nent prese nt FINAL DIAGN OSIS: Negat benjamin for Intra epith elial Lesio n or Jeff ledbetter (NIL) . Mckenzie prater d by Yecenia Burgess, CT on 024 at 9:14 AM ----- ----- ----- ----- ----- ----- ----- ----- ----- ----- ----- ----- ----- ----- ----- ----- ----- ---- HPV RESUL TS: HPV mRNA E6/E7 : No HPV mRNA Detec minesh NOTE: This high risk HPV mRNA assay detec ts fourt een high- risk HPV types (16, 18, 31, 33, 35, 39, 45, 51, 52, 56, 58, 59, 66, 68) witho ut diffe renti ation . COMME NT: This speci men was revie wed by a Cytot echno logis t and/o r Patho logis t (as indic ated in this repor t) after evalu ation using the Thinp rep Imagi ng Syste m. CLINI ARTEM INFOR MATIO N: Menst rual Statu s: LMP (if appli cable ): Clini artem Histo ry/Pr eviou s Pap: Type of Neopl jennifer (if appli cable ): Signi fican t Clini artem Findi ngs: Other Histo ry: Hormo sheryl (if appli cable ): PAP EDUCA BECCA L NOTE: The Pap Test is a scree aleah test with an inher ent false negat benjamin rate. Liqui d-bas ed sampl ing may decre ase, but will not elimi alma, false negat benjamin resul ts. A negat benjamin resul t does not precl ude the prese nce and/o r devel opmen t of disea se, since the prese nce of abnor mal cells in the sampl e depen ds on the locat ion of the lesio n and sampl ing techn ique. Padmini nued regul ar scree aleah is the best metho d of cance r preve ntion . If repor minesh cytol ogic findi ng do not corre late with physi artem and/o r histo rical findi ngs, furth er inves tigat ion is recom sonya d, as clini maeve bobo nted. Not Available [facility] (Lab) [address], [place], [address], 06/20/2023 10:18:31 02/05/20 22 02/04/2022 US, pelvi s No observ ation record ed. [email or web address] [facility] [address], [place], [address], 02/04/2022 14:03:07 02/05/2002/04/2022 US, trans vagin al No observ ation record ed. [email or web address] [facility] [address], [place], [address], 02/04/2022 14:02:55 02/05/2002/04/2022 US, pelvi s No observ ation record ed. [email or web address] [address], [place], [address], 02/07/2022 12:36:56 06/19/19 23 06/18/2022 MAMMO , scree aleah, bilat eral No observ ation record ed. [email or web address] [place] [address] [address], [place], [address], 01/25/2025 12:13:46 10/22/19 24 10/22/2023 imagi ng/di agnos tic resul t No observ ation record ed. [facility] [address], [place], [address], 11/06/2023 04:01:51 01/05/20 25 01/03/2025 MAMMO , 3D rende ring No observ ation record ed. [email or web address] [place] [address] Imaging [address], [place], [address], 01/25/2025 12:10:43 01/06/20 25 01/03/2025 MAMMO , scree aleah, bilat eral No observ ation record ed. [email or web address] [place] [address] Imaging [address], [place], [address], 01/25/2025 11:46:16 Result Notes None recorded. Problems Name Problem SNOMED Code Status Onset Date Resolution Date Notes Provider Name and Address Organization Details Recorded Time Adult health examinat ion Completed 201002/06/2021 Routine general medical examinati on at a health care facility; Practice ID: 0001 Debi Palafox [facility] 11:41:17 Speciali zed medical examinat ion Completed 201002/06/2021 Routine gynecolog ical examinati on;Practi ce ID: 0001 Debi Palafox [facility] 11:41:45 Screenin g for malignan t neoplasm of colon Completed 201002/06/2021 Special screening for malignant neoplasms , colon;Pra ctice ID: 0001 Debi Palafox [facility] 11:41:37 Vaginal wall prolapse [id number] Completed 201102/06/2021 Unspecifi ed prolapse of vaginal queen;Pra ctice ID: 0001 Debi Palafox [facility] 11:41:50 Screenin g for malignan t neoplasm of cervix Completed 201102/06/2021 Screening for malignant neoplasms of the cervix;Re corded Elsewhere : No Locati on: [facility] So urce: EHR Chron ic: N Practic e ID: 0001 Gabriel able Time: 11:30:00 AM [facility] 11:41:35 Atrophic vaginiti s [id number] Completed 201102/06/2021 Postmenop ausal atrophic vaginitis ;Practice ID: 0001 Debi Palafox [facility] 11:41:21 Screenin g for malignan t neoplasm of rectum Completed 201102/06/2021 Screening for malignant neoplasms of the rectum;Pr actice ID: 0001 Debi valerio [facility] 11:41:38 Stenosis of cervix [id number] Completed 201102/06/2021 Stricture and stenosis of cervix;Pr actice ID: 0001 Debi valerio [facility] 11:41:47 Pregnanc y test negative [id number] Completed 201102/06/2021 Negative Test;Prac henny ID: 0001 Debi valerio, [facility] 11:41:33 Pre-surg veronica evaluati on Completed 201102/06/2021 Pre-opera tive examinati on, unspecifi ed;Practi ce ID: 0001 [facility] 11:41:31 Amenorrh ea [id number] Completed 201102/06/2021 AMENORRHE A;Practic e ID: 0001 [facility] 11:41:19 Body mass index 30+ - obesity [id number] Completed 201402/06/2021 Body mass index (BMI) 33.0-33.9 , adult;Rec orded Elsewhere : No Locati on: [facility] So urce: EHR Chron ic: N Practic e ID: 0001 Bill able Time: 04:00:00 PM [facility] 11:41:23 Blood leukocyt e number above referenc e range [id number] Completed 201402/06/2021 Elevated white blood cell count, unspecifi ed;Practi ce ID: 0001 [facility] 11:41:[address] Concept Completed 201602/06/2021 Encntr for general adult medical exam w/o abnormal findings; Recorded Elsewhere : No Locati on: [facility] So urce: EHR Chron ic: N Practic e ID: 0001 Bill able Time: 08:30:00 AM Debi valerio [facility] 11:41:42 Finding of menstrua l bleeding Completed 201702/06/2021 Excessive and frequent menstruat ion with regular cycle;Rec orded Elsewhere : No Locati on: [facility] So urce: EHR Chron ic: N Practic e ID: 0001 Bill able Time: 10:45:00 AM Debi Palafox [facility] 11:41:25 Postmeno pausal bleeding [id number] Completed 201702/06/2021 Postmenop ausal bleeding; Recorded Elsewhere : No Locati on: [facility] So urce: EHR Chron ic: N Practic e ID: 0001 Bill able Time: 06:00:00 PM Debi Palafox [facility] 11:41:30 Abrasion of skin of breast [id number] Completed 201802/06/2021 Abrasion of breast, left breast, subsequen t encounter ;Recorded Elsewhere : No Locati on: [facility] So urce: EHR Chron ic: N Practic e ID: 0001 Bill able Time: 04:00:00 PM Debi Palafox [facility] 11:41:[address] Concept Completed 201802/06/2021 Encntr for gynecologist exam (general) (routine) w/o abn findings; Recorded Elsewhere : No Locati on: [facility] So urce: EHR Chron ic: N Practic e ID: 0001 Bill able Time: 08:45:00 AM Debi Palafox [facility] 11:41:44 Superfic ial pain on intercou rse [id number] Completed 201802/06/2021 Superfici al (introita l) dyspareun ia;Record ed Elsewhere : No Locati on: [facility] So urce: EHR Chron ic: N Practic e ID: 0001 Bill able Time: 08:45:[address] [facility] 11:41:49 Genuine stress incontin ence [id number] Completed 201802/06/2021 Female stress incontine nce;Recor ded Elsewhere : No Locati on: [facility] So urce: EHR Chron ic: N Practic e ID: 0001 Bill able Time: 08:45:00 AM [facility] 11:41:27 Problem Notes None recorded. Procedures Surgical History Date Name Laterality Status Provider Name and Address Organization Details Recorded Time 023 Date of Last Colonoscopy completed Merari Carter [facility] 06/17/2023 10:21:53 022 DILATION AND CURETTAGE WITH HYSTEROSCOPY (SURG) completed Cher Dang [facility] 04/11/2022 13:22:08 022 endometrial biopsy completed [facility] 02/08/2022 12:16:38 021 Date of Last Mammogram completed [facility] 01/30/2022 13:55:42 021 Date of Last Pap Smear completed [facility] 01/30/2022 09:37:18 020 completed [facility] 02/06/2021 11:44:23 020 [facility]olecystectomy [facility] [address], [place], [address], [facility] 02/08/2021 12:12:58 020 dual energy X-ray absorptiometry completed [facility] [address], [place], [address], [facility] 02/08/2021 12:21:48 019 cholecystectomy completed Jody Menard [facility] [address], [place], [address], [facility] 02/01/2020 15:42:27 019 Other completed Jody Menard [facility] [address], [place], [address], [facility] 02/08/2021 12:12:45 018 Hysteroscopy completed [facility] 02/20/2022 18:28:39 012 endometrial biopsy completed Debi [facility] 01/30/2022 09:36:48 012 Hysteroscopy completed [facility] 04/19/2022 16:43:08 Colonoscopy completed Jody Menard [facility] [address], [place], [address], [facility] 02/08/2021 12:11:25 Imaging Results None recorded. Procedure Notes None recorded. Medical Equipment None Reported. Allergies Allergen ID Allergen Name Allergen Category Reaction Reaction Severity Criticality Documentation Date Start Date Code Code System Note Provider Name and Address Organization Details Recorded Time 2445 Product containin g penicilli n (product) medicatio n Not available Not available Not available 02/01/2020 87258 8001 SNOMED [facility] 0 11:15:00 2446 tetracycl ine medicatio n Not available Not available Not available 02/01/2020 07645 RxNorm Emmy Siddiqui teodoro, [facility] 0 11:15:10 Medications Name Sig Start Date Stop Date Status Note LastModified by Organization Details LastModified Time multivita min tablet take 1 tablet by oral route every day with food 2011 active Prescrib ed Elsewher e: No Locat ion: [facility] M odify By: roverto robledo DateTime : 06/25/19 12 02:30:00 PM Not Available Not Available Not Available Miralax 17 gram/dose oral powder take by oral route every day mixed with 8 oz. water, juice, soda, coffee or tea 05/14 completed Prescrib ed Elsewher e: Yes Loca tion: Vanessa macias [facility] odify By: ammandeep chambers DateTime : 12/18/19 13 02:30:00 PM Not Available Not Available Not Available prednison e 10 mg tablet 06/16 completed Not Available Not Available Not Available atorvasta tin 10 mg tablet TAKE 1 TABLET BY MOUTH EVERY DAY active Not Available Not Available No t Available nortripty line (bulk) powder 01/30 completed Prescrib ed Elsewher e: Yes Loca tion: Vanessa macias [facility] odify By: ammandeep chambers DateTime : 06/25/19 12 02:30:00 PM Not Available Not Available Not Available benzonata te 200 mg capsule TAKE 1 CAPSULE BY MOUTH THREE TIMES DAILY NEEDED FOR COUGH 06/16 completed Not Available Not Available Not Available diltiazem CD 360 mg capsule,e xtended release 24 hr active Not Available Not Available Not Available omeprazol e 40 mg capsule,d elayed release active Not Available Not Available Not Available triamcino lone acetonide 0.1 % topical cream apply by topical route 2 times every day a thin layer to the affected area(s) 08/27 completed Prescrib ed Elsewher e: No Locat ion: Vanessa macias [facility] odify By: [email or web address] Encount er DateTime : 07/16/19 08:30:00 AM Not Available Not Available Not Available spironola ctone 25 mg tablet TAKE 1/2 TABLET BY MOUTH DAILY active Not Available Not Available No t Available Macrobid 100 mg capsule take 1 capsule by oral route every 12 hours with food 06/05 completed Prescrib ed Elsewher e: No Locat ion: Vanessa macias [facility] odify By: marc robledo DateTime : 05/27/19 03:37:07 PM Not Available Not Available Not Available potassium 99 mg tablet 02/08 completed Prescrib ed Elsewher e: Yes Loca tion: [facility] odify By: chito chambers DateTime : 01/31/20 15 04:00:00 PM Not Available Not Available Not Available potassium chloride ER 20 mEq tablet,ex tended release(p art/cryst ) TAKE 1 TABLET BY MOUTH EVERY DAY 06/16 completed Not Available Not Available Not Available famotidin e 20 mg tablet TAKE 1 TABLET BY MOUTH TWICE DAILY FOR 7 DAYS 06/16 completed Not Available Not Available Not Available diltiazem CD 300 mg capsule,e xtended release 24 hr TAKE 1 CAPSULE BY MOUTH EVERY DAY 01/30 completed Not Available Not Available Not Available Cartia XT 120 mg capsule,e xtended release take 1 capsule by oral route every day 02/08 completed Prescrib ed Elsewher e: Yes Loca tion: [facility] odify By: roverto robledo DateTime : 06/25/19 12 02:30:00 PM Not Available Not Available Not Available oseltamiv ir 75 mg capsule 06/16 completed Not Available Not Available Not Available indometha maxine 25 mg capsule 01/30 completed Not Available Not Available Not Available nystatin- triamcino lone 100,000 unit/g-0. 1 % topical cream apply by topical route 2 times every day to the affected area(s) in the morning and evening 01/30 completed Prescrib ed Elsewher e: No Locat ion: [facility] odify By: ammandeep chambers DateTime : 12/19/19 13 02:21:28 PM Not Available Not Available Not Available nitroglyc domonique 0.4 mg sublingua l tablet DISSOLVE 1 TABLET UNDER THE TONGUE EVERY 5 MINUTES NEEDED FOR CHEST PAIN UP TO 3 DOSES TOTAL active Not Available Not Available No t Available aspirin 81 mg chewable tablet chew 1 tablet by oral route every day 2014 active Prescrib ed Elsewher e: Yes Loca tion: [facility] odify By: chito chambers DateTime : 01/31/20 15 04:00:00 PM Not Available Not Available Not Available Provera 10 mg tablet take 1 tablet (10MG) by oral route every day 02/08 completed Prescrib ed Elsewher e: No Locat ion: Vanessa macias [facility] odify By: vito robledo DateTime : 12/12/19 12 10:00:00 AM Not Available Not Available Not Available hydroxyzi ne HCl 25 mg tablet TAKE 1 TABLET BY MOUTH EVERY 6 TO 8 HOURS NEEDED FOR ITCHING 06/16 completed Not Available Not Available Not Available aspirin 81 mg tablet take 1 tablet (81MG) by oral route every day 10/23 completed Prescrib ed Elsewher e: No Locat ion: Vanessa macias [facility] odify By: vito robledo DateTime : 06/25/19 12 02:30:00 PM Not Available Not Available Not Available acyclovir 200 mg capsule TAKE ONE CAPSULE BY MOUTH FOUR TIMES DAILY active Not Available Not Available No t Available methylpre dnisolone 4 mg tablets in a dose pack FOLLOW PACKAGE DIRECTIO NS 06/16 completed Not Available Not Available Not Available magnesium 30 mg tablet 02/08 completed Prescrib ed Elsewher e: Yes [facility] By: chito martinezunter DateTime : 01/31/20 15 04:00:00 PM Not Available Not Available Not Available metronida zole 0.75 % topical gel APPLY TO RED AREAS ON FACE TWICE A DAY 06/16 completed Not Available Not Available Not Available Estrace 0.01% (0.1 mg/gram) vaginal cream insert (1G) by vaginal route 3 times every week 08/27 completed Prescrib ed Elsewher e: No Locat ion: Winston gilberto [facility] odify By: marilu ackerman DateTime : 08/28/19 08:45:00 AM Not Available Not Available Not Available azithromy maxine 500 mg tablet TAKE 1 TABLET BY MOUTH DAILY FOR 10 DAYS 06/16 completed Not Available Not Available Not Available Calcio Hui 500 mg tablet 01/30 completed Prescrib ed Elsewher e: Yes [facility] By: chito martinezuntradha DateTime : 06/25/19 12 02:30:00 PM Not Available Not Available Not Available magnesium 02/06 completed Not Available Not Available Not Available atorvasta tin 02/06 completed Not Available Not Available Not Available potassium acetate 02/06 completed Not Available Not Available Not Available aspirin 02/06 completed Not Available Not Available Not Available spironola ctone 02/06 completed Not Available Not Available Not Available Provera 01/31 completed Not Available Not Available Not Available Stool Softener 06/16 completed Not Available Not Available Not Available Zyrtec 06/16 completed Not Available Not Available Not Available Cartia XT 02/06 completed Not Available Not Available Not Available ranolazin e ER 500 mg tablet,ex tended release,1 2 hr take 1 tablet by oral route 2 times every day active Not Available Not Available No t Available Tobradex ST 0.3 %-0.05 % eye drops,calin pension SHAKE LIQUID AND INSTILL 1 DROP IN RIGHT EYE FOUR TIMES DAILY FOR 7 DAYS 02/08 completed Not Available Not Available Not Available magnesium 400 mg (as magnesium oxide) capsule Take by oral route. active 250mg daily Not Available Not Available Not Available Multi Vitamin 02/06 completed Not Available Not Available Not Available ID NOW COVID-19 Test Kit TEST DIRECTED 02/08 completed Not Available Not Available Not Available Vitals Date Recorded Body height Body mass index (BMI) Body weight Systolic And Diastolic Provider Name and Address Organization Details Last Updated DateTime 04/19/2022 158.75 cm 34.4 kg/m2 46070.14 g 142/75 mm[Hg] Anahi Calloway [facility] 04/19/2022 16:10:46 Date Recorded Body height Body mass index (BMI) Body weight Systolic And Diastolic Provider Name and Address Organization Details Last Updated DateTime 06/17/2023 158.75 cm 32 kg/m2 10124.44 g 123/75 mm[Hg] Merari Carter [facility] 06/17/2023 10:17:21 Date Recorded Body height Body mass index (BMI) Body weight Systolic And Diastolic Provider Name and Address Organization Details Last Updated DateTime 02/08/2022 158.75 cm 37.6 kg/m2 27483.81 g 120/80 mm[Hg] Debi Palafox [facility] 02/08/2022 12:16:03 Date Recorded Body height Body mass index (BMI) Body weight Systolic And Diastolic Provider Name and Address Organization Details Last Updated DateTime 02/15/2022 158.75 cm 36.7 kg/m2 49955.84 g 145/56 mm[Hg] Anahi Calloway [facility] 02/15/2022 15:15:24 Social History Question Answer Notes LastModified by Organizat ion Details LastModified Time Tobacco Smoking Status Never Smoker Debi Palafox [facility] 02/08/2021 11:51:48 Do You Have An Advance Directive? No Information n ot available 02/08/2021 How Many Years Have You Consumed Alcohol? 10 Information not available 02/08/2021 Are You Blind Or Do You Have Difficulty Seeing? No Information n ot available 02/06/2021 What Is Your Level Of Caffeine Consumption? Occasional Information not available 02/06/2021 In The 14 Days Before Symptom Onset, Have You Had Close Contact With A Laboratory-confirm ed COVID-19 While That Case Was Ill? No Information n ot available 02/08/2021 In The 14 Days Before Symptom Onset, Have You Had Close Contact With A Person Who Is Under Investigation For COVID-19 While That Person Was Ill? No Information not available 02/08/2021 Have You Been To An Area Known To Be High Risk For COVID-19? No Information not available 02/08/2021 Are You Deaf Or Do You Have Serious Difficulty Hearing? No Information not available 02/06/2021 What Type Of Diet Are You Following? REGULAR Information n ot available 02/06/2021 What Is The Highest Grade Or Level Of School You Have Completed Or The Highest Degree You Have Received? [id number] Information not available 02/08/2021 Do You Use Protection During Sex? No Information not available 02/08/2021 Do You Use Your Seat Belt Or Car Seat Routinely? Yes Information not available 02/06/2021 Do You Have Smoke And Carbon Monoxide Detectors In Your Home? Yes Information not available 02/06/2021 How Much Tobacco Do You Smoke? No Information not available 02/08/2021 Do You Use Sunscreen Routinely? Yes Information not available 02/06/2021 Have You Used IV Drugs? No Information not available 02/08/2021 Do You Have Difficulty Walking Or Climbing Stairs? No Information not available 01/30/2022 Sex: Unknown Functional Status Question Answer Note LastModified by Organizat ion Details LastModified Time Do you use any illicit or recreational drugs? No Information not available 02/06/2021 What is your level of alcohol consumption? Occasional Information not available 02/06/2021 Are you able to walk independently without assistance or assistive devices? YESWOREST Information not available 02/06/2021 Are you able to care for yourself independently? Yes Information not available 01/30/2022 What is your occupation? Retired Information not available 02/08/2021 Do you have difficulty dressing, bathing, grooming, or toileting? No Information not available 01/30/2022 What is your exercise level? Occasional Information not available 02/06/2021 Mental Status Question Answer Note LastModified by Organization D etails LastModified Time Do you feel stressed (tense, restless, nervous, or anxious, or unable to sleep at night)? [id number] Information not available 02/08/2021 Family History Relationship Description Onset Age of this Age Resolved Age Notes LastModified by Organization Details LastModified Time Maternal Aunt Diabetes mellitus [email or web address] Not available 2019 11:16:42 Maternal Aunt Carcinoma in situ of breast Not available 2020 11:51:40 Father Carcinoma in situ of breast Not available 2020 11:51:40 Father Hypertensive disorder [email or web address] Not available 2019 11:17:00 Maternal Grandfather Family history of cancer of colon Not available 2020 11:51:40 Medical History Condition Response Heart Problems Y Other Y Cancer Y Arthritis Y Gynecological History Statement/Question Response Abnormal Pap Y Date of Last Mammogram 04/02/2021 STIs/STDs N HPV Vaccine N 04/05/2020 Current Control Method Menopause Date of Last Colonoscopy 04/14/2022 Sexually Active? Y Menses Monthly N Date of DEXA bone scan 04/05/2020 Date of Last Pap Smear 02/08/2021 Sexual Problems? N LMP Unknown Obstetrics History GPAL:G 2 P 0 0 0 2 Type Value Living 2 Total 2 Past Encounters Encounter ID Performer Location Encounter Start Date Encounter Closed Date Diagnosis/Indication Diagnosis SNOMED-CT Code Diagnosis ICD10 Code Diagnosis IMO Codes Diagnosis Note [id number] [facility] [address] [address] 02/01/2020 11:13:29 02/01/2020 14:01:33 Gynecologic examination [id number] Z01.419 Take Calcium with Vitamin D 12-1500mg daily. Do monthly self breast exams. It is advised to get annual flu shot in the fall and she could obtain at [facility] or [facility] care clinic. If you haven't received the Tdap vaccine in the last 10 years you should obtain one as well. Have mammogram yearly, bone density every 2-3 years and colonoscop y every 5-10 years depending on findings and history. Engage in daily exercise of low impact aerobic exercise 45-60 minutes 4-5 times weekly. Avoid tobacco and illicit drugs as well as using moderation with alcohol intake less than 1-2 8 oz beverages daily. This lifestyle behavior pattern will lead to less health conditions and longer life span. If BMI greater than 25 weight watchers or dietary consult advised. Questions have been answered. Patient appears to understand instructio ns, but if you have any further questions call or respond to this email Recommende d vegetable moisturizi ng daily for dry tissues. Consider vag estrogen moving forward if needed. monogamous relathip x 40yrs Neg pap/hpv hx last pap/hpv 2019 wnl No issues or concerns this year. Recommend vag moisturizi ng. not interested in estrogen therapy PV. Postmenopa usal osteopenia [id number] M85.80 [id number] [facility] [address] [address] 02/08/2021 11:25:13 02/08/2021 12:56:17 Gynecologic examination [id number] Z01.419 Take Calcium with Vitamin D 12-1500mg daily. Do monthly self breast exams. It is advised to get annual flu shot in the fall and she could obtain at [facility] or [facility] care clinic. If you haven't received the Tdap vaccine in the last 10 years you should obtain one as well. Have mammogram yearly, bone density every 2-3 years and colonoscop y every 5-10 years depending on findings and history. Engage in daily exercise of low impact aerobic exercise 45-60 minutes 4-5 times weekly. Avoid tobacco and illicit drugs as well as using moderation with alcohol intake less than 1-2 8 oz beverages daily. This lifestyle behavior pattern will lead to less health conditions and longer life span. If BMI greater than 25 weight watchers or dietary consult advised. Questions have been answered. Patient appears to understand instructio ns, but if you have any further questions call or respond to this email Recommende d vegetable moisturizi ng daily for dry tissues. Consider vag estrogen moving forward if needed. monogamous relathip x 40yrsPap/h pv sent Hx of cryo-cervi x No issues or concerns this year. Recommend vag moisturizi ng. Discussed genetic cancer screen-maggie morrow consider moving forward. Screening colonoscopy 44 [id number] Z12.11 Due for colon screen. [id number] ISAAC [facility] [address] [address] 01/30/2022 13:44:29 01/30/2022 14:12:06 Abnormal uterine bleeding [id number] 9100 N93.9 Will update USConsider updating more recent labs if requiredAw are EMBx if required next visit after US reviewed. Patient is to contact office or go to nearest ED/Urgent care if fever >/= 100.1, pain, excessive bleeding, unusual drainage or swelling in area of concern; or experienci ng worsening sx's or new onset of concerning sx's. Understand ing verbalized . All questions answered to patient satisfacti on. Time spent in visit is a total of 22 mins with at least 50% of visit consisting of counseling and review of plan of care. [id number] Dago Gamez MD [facility] [address] [address] 02/04/2022 12:03:40 02/04/2022 13:31:32 Abnormal uterine bleeding [id number] 9100 N93.9 [id number] Jody Menard [facility] [address],[place] [address] 02/08/2022 11:47:09 02/11/2022 16:18:57 Screening procedure [id number] Z13.9 Postmenopa usal bleeding 64245713 N95.0 Reviewed US results.EM BX failed--st enotic postmenopa usal OS.We agreed to MD consult to determine what f/u would be appropriat e for her based on US results; and possible EMBx. Time spent in visit is a total of 15 mins with at least 50% of visit consisting of counseling and review of plan of care. [id number] Dago Gamez MD [facility] [address],[place] [address] 02/15/2022 14:42:04 02/15/2022 15:50:52 Postmenopausal bleeding [id number] N95.0 this patient is a 61-year-ol d female with postmenopa usal bleeding. She had 3 episodes of. A endometria l biopsy was attempted but failed due to cervical scarring and stenosis. We talked about options. We talked about another attempt at endometria l biopsy in the office, hysterosco py D&C in the office with cervical block in preop meds. Talked about doing the procedure at the hospital. We agreed that we would definitely get a completed at the hospital and that will be the best option. We will move forward. I described the procedure in detail describing the scope, the curettage, discovered risk to the patient. We made decision to perform surgery. We will move forward with hysterosco py D&C for postmenopa usal bleeding. [id number] Dago Gamez MD [facility] [address] [address] 04/11/2022 11:56:22 04/11/2022 11:57:27 [id number] Dago Gamez MD [facility] [address] [address] 04/19/2022 15:59:31 04/19/2022 17:22:36 Postmenopausal bleeding 33856229 N95.0 this patient is a 61-year-ol d female who presents for follow-up on postmenopa usal bleeding. We performed hysterosco py D&C last week. She is doing well. She has no complaints . The biopsy was normal. We agreed To follow-up as needed. [id number] Jody Menard [facility] [address] [address] 06/17/2023 10:07:05 06/17/2023 11:07:38 Gynecologic examination 17781799 Z01.419 Z11.51 Take Calcium with Vitamin D 12-1500mg daily. Do monthly self breast exams. It is advised to get annual flu shot in the fall and she could obtain at [facility] or [facility] care clinic. If you haven't received the Tdap vaccine in the last 10 years you should obtain one as well. Have mammogram yearly, bone density every 2-3 years and colonoscop y every 5-10 years depending on findings and history. Engage in daily exercise of low impact aerobic exercise 45-60 minutes 4-5 times weekly. Avoid tobacco and illicit drugs as well as using moderation with alcohol intake less than 1-2 8 oz beverages daily. This lifestyle behavior pattern will lead to less health conditions and longer life span. If BMI greater than 25 weight watchers or dietary consult advised. Questions have been answered. Patient appears to understand instructio ns, but if you have any further questions call or respond to this email Pap/hpv sentSTD Screen declinedGe netic Screen discussedC olon Screen PCPDexa Screen PCPRoutine Labs PCPNeg AUB/PMB Screening mammography 24 889991 Z12.31 Nocturia [id number] R35.1 N39.46 Refer to urogyn for further assessment /managemen t Health Concerns Section Related Observation LastModified by Organization Detai ls LastModified Time None Recorded Concern Status LastModified by Organization Details LastModified Time None Recorded Advance Directives Directive N: Payers Insurance Date Sequence Insurance Name Policy Number Policy Parkinson Covered Member ID Parkinson Member ID Guarantor Name 06/14/2023 1 [facility] [id number] Praveen Gutierrez [id number] Praveen Gutierrez 07/14/2024 1 [employer] (MEDICARE REPLACEMENT/ ADVANTAGE - PPO) Arti Gutierrez [id number] Praveen Gutierrez Notes Date Note Type Note Provider Name and Address Organization Details Recorded Time 2 text/html ROS as noted in the HPI Here today for review of US & EMBx for PMB. Jody Menard, [facility]- [address], [place], [address], [facility] 02/08/2022 17:27:29 2 text/html this patient is a 61-year-old female with postmenopausal bleeding. She had 3 episodes of. A endometrial biopsy was attempted but failed due to cervical scarring and stenosis. We talked about options. We talked about another attempt at endometrial biopsy in the office, hysteroscopy D&C in the office with cervical block in preop meds. Talked about doing the procedure at the hospital. We agreed that we would definitely get a completed at the hospital and that will be the best option. We will move forward. I described the procedure in detail describing the scope, the curettage, discovered risk to the patient. We made decision to perform surgery. We will move forward with hysteroscopy D&C for postmenopausal bleeding. Dago Gamez MD [address], [place], [address], [facility] 02/15/2022 15:50:29 3 text/html this patient is a 61-year-old female who presents for follow-up on postmenopausal bleeding. We performed hysteroscopy D&C last week. She is doing well. She has no complaints. The biopsy was normal. We agreed To follow-up as needed. Dago Gamez MD [address], [place], [address], [facility] 04/19/2022 16:41:55 4 text/html Annual Noise Tester Post-MenopausalReported by PatientGenitourinary symptomsFor menopausal symptoms, patient reportsno menopausal symptomsandnormal vaginal lubrication. For vaginal bleeding, patient reportshistory of menopause having occurredandno history of post menopausal bleeding. For urinary symptoms, patient reportsno hematuria,no incontinence,no nocturia, andno urinary frequency. For vulva, patient reportsno genital lesionandno vulvar atrophy. For vagina, patient reportsnormal vaginal dischargeandno vaginal atrophy.Breast symptomsFor breast, patient reportsno breast lump,no nipple discharge, andno breast pain.Psychological symptomsFor sexual complaints, patient reportsno sexual complaints. For psychological symptoms, patient reportsno depressionandno anxiety.Preventative measuresFor preventive measures, patient reportsencourage regular mammograms starting age 40,encourage self breast examination,encourage regular exercise,encourage no tobacco use,needs to schedule mammogram, andhistory of recent colonoscopy. Jody Menard, [facility]- [address], [place], [address], [facility] 06/17/2023 11:04:50 OBGyn Episode Ob Episode Information Episode Created Date Number of Fetuses Patient Bloodtype Patient rh Status Prepregnancy Weight lbs Domestic Partner Domestic Partner Phone Father Name Handy Worker Status 02/01/20 1 CLOSED Fetus Data First Name Last Name Admitted to NICU Weight (g) Sex Living Outcome Pediatric Complications Fetus ID Race Codes Race Delivery Type [id number] Vaginal Delivery Jamie Calculation Initial Jamie Date Initial Exam Date Initial Exam Provider Initial Ultrasound Date Last Menstrual Period Date Ultra Sound Weeks Gestation 0 Eighteen To Twenty Week Jamie Update Ultra Sound Date Fundal Height At Umbil Quickening Date Ultra Sound Latest Weeks Gestation Final Jamie Confirmed By Final Jamie Confirmed Date Final Jamie Date Ultra Sound Latest Days Gestation 0 0 Menstrual History Last Menstrual Date Menses Monthly On Bcp Conception Prior Menses Frequency Hcg Plus Date Menarche Onset Age Delivery Information Delivery Date Delivery Type Labor Anesthesia Weeks Gestation Incision Type Labor Labor Length Hrs Delivered By Post Complications Tubal Sterilization Discharge Date Comments 1 Discharge Information Feeding Method Contraceptive Method Maternal HG B and HCT Levels Ob Episode Information Episode Created Date Number of Fetuses Patient Bloodtype Patient rh Status Prepregnancy Weight lbs Domestic Partner Domestic Partner Phone Father Name Handy Worker Status 02/01/20 20 1 CLOSED Fetus Data First Name Last Name Admitted to NICU Weight (g) Sex Living Outcome Pediatric Complications Fetus ID Race Codes Race Delivery Type 2863.07 [id number] Vaginal Delivery Jamie Calculation Initial Jamie Date Initial Exam Date Initial Exam Provider Initial Ultrasound Date Last Menstrual Period Date Ultra Sound Weeks Gestation 0 Eighteen To Twenty Week Jamie Update Ultra Sound Date Fundal Height At Umbil Quickening Date Ultra Sound Latest Weeks Gestation Final Jamie Confirmed By Final Jamie Confirmed Date Final Jamie Date Ultra Sound Latest Days Gestation 0 0 Menstrual History Last Menstrual Date Menses Monthly On Bcp Conception Prior Menses Frequency Hcg Plus Date Menarche Onset Age Delivery Information Delivery Date Delivery Type Labor Anesthesia Weeks Gestation Incision Type Labor Labor Length Hrs Delivered By Post Complications Tubal Sterilization Discharge Date Comments 4 Discharge Information Feeding Method Contraceptive Method Maternal HG B and HCT Levels
--- OUTSIDE RECORDS SUMMARY | 2025-04-09 12:38 | XMS_ITS | Encounter Summary ---
Author Organization [facility] Address [address] [place] [address] Phone Care Team Providers Care [employer] Account Assistant Name Role Phone Paul Noel MD Unavailable [phone] Chandu Bar MD, Niels Liang Primary Care Provide r Encounter Details Date Type Department Care Team (Late st Contact Info) Description 07/14/2023 Telephone [facility] Medicine Cardiology [address] [facility] Advanced Medicine 8th [place] [address] [place] [address] Lazaro Alberts MD [address] [address] [address] [place] [address] Social History Tobacco Use Types Packs/Day Years Used Date Smoking Tobacco: Never Smokeless Tobacco: Never Alcohol Use Standard Drinks/Week Comments Yes 0 (1 standard drink = 0.6 oz pur e alcohol) Socially AUDIT-C Answer Date Recorded Q1: How often do you have a drink containing alc ohol? Monthly or less 07/16/2023 Q2: How many drinks containi ng alcohol do you have on a typical day when you are drinking? 1 or 2 07/16/2023 Q3: How often do you have si x or more drinks on one occasion? 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 file Not on file Not on file documented as of this encounter Plan of Treatment Not on file documented as of this encounter Visit Diagnoses Not on filedocumented in this encounter Additional Health Concerns Infection Onset Date Last Indicated Resolved Time COVID: Suspected 07/05/2024 07/05/2024 07/05/2024 10:39 AM CDT COVID: Suspected 10/21/2024 10/21/2024 10/21/2024 12:43 PM CDT documented as of this encounter Care Teams Commercial [employer] Account Assistant Relationship Specialty Start Date End Date Niels Schofield Jr., MD [address] [place] [id number] PCP - General Internal Medicine 04/17/21 Paul Noel MD [address] [place] [id number] 03/08/19 documented as of this encounter
[2025-04-09 12:47] VITALS: BP 140/76; PULSE 61; RESP 18; TEMP 36.3; O2SAT 100
--- NOTE | 2025-04-09 12:47 | ED.GENADULT ---
HPI - General Adult General Chief complaint: Eye Problems Stated complaint: Cold Like Time Seen by Provider: 04/09/25 12:47 Source: patient Mode of arrival: ambulatory Limitations: no limitations History of Present Illness HPI narrative: 64-year-old female patient presents to the [facility] with complaints of bilateral itchy and gritty eyes with slight redness that started about 1-2 days ago. Patient states she has had a little bit of a runny nose denies fevers body aches or chills. Denies any ear pain or sore throat. Patient states she has been using a heating pad to the eyes and some saline at times. Related Data Home Medications ?Medication ?Instructions ?Recorded ?Confirmed ?Last Taken ?Type aspirin 81 mg tablet,delayed 81 mg PO DAILY 05/20/19 04/10/22 05/20/21 History release (Aspir-) atorvastatin 10 mg tablet 10 mg PO DAILY 05/20/19 04/10/22 05/20/21 History multivitamin 1 tablet PO DAILY 05/20/19 04/10/22 05/20/21 History spironolactone 25 mg tablet 12.5 mg PO DAILY 05/20/19 04/10/22 05/20/21 History diltiazem HCl 360 mg 360 mg PO DAILY 05/09/21 04/10/22 04/10/22 05:25 History capsule,extended release 24 hr docusate sodium 100 mg capsule 200 mg PO DAILY 05/09/21 04/10/22 05/20/21 History (Colace) calcium polycarbophil 625 mg 1,250 mg PO DAILY 03/29/22 04/10/22 Unknown History tablet (FiberCon) cetirizine 10 mg capsule (Zyrtec) 10 mg PO DAILY 03/29/22 04/10/22 Unknown History magnesium 200 mg tablet 400 mg PO DAILY 03/29/22 04/10/22 Unknown History Allergies Allergy/AdvReac Type Severity Reaction Status Date / Time tetracycline Allergy Mild UNKNOWN Verified 04/09/25 12:49 REACTION Penicillins AdvReac Mild FLUSHING Verified 04/09/25 12:49 Review of Systems Review of Systems: CONSTITUTIONAL: Denies fever, chills, or sweats. EYES: Denies visual changes, positive redness and itchiness. Clear discharge. ENT: Positive rhinorrhea, congestion, denies sore throat, or otalgia. CARDIOVASCULAR: Denies chest pain, palpitations, or edema. RESPIRATORY: Denies cough or dyspnea. GASTROINTESTINAL: Denies abdominal pain, nausea, vomiting, or diarrhea. GENITOURINARY: Denies dysuria or hematuria. SKIN: Denies rash or itching. MUSCULOSKELETAL: Denies back pain, joint pain, or myalgia. NEUROLOGIC: Denies headache, numbness, or weakness. PSYCHIATRIC: Denies anxiety or depression. [facility] Past Medical History Medical History Hypertension, essential Hyperlipidemia PVCs (premature ventricular contractions) Acalculous cholecystitis Surgical History Surgical History History of tonsillectomy History of cardiac catheterization no CAD History of biliary duct stent placement History of cholecystectomy Family History Family History Mother , at age 53 Rheumatic aortic disease Congestive heart failure Father , at age 94 Breast cancer in male Dementia Sibling Fibromyalgia Sibling Malignant neoplasm of prostate Parkinson disease Social History Social History Social History: . Resides with . 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 Smoking status: Never smoker Second hand tobacco smoke exposure: No Alcohol intake: current Drinks per week: 0 Alcohol use details: 2 DRINKS/MONTH Substance use: never Substance use type: does not use Living arrangements: with family Occupation/Education: occupation Gender identity (if verbalized by the patient): Female Spiritual care concerns: No Agree to blood products: Yes Comments At the time of my signature I agree with nursing past medical history, surgical, social, and family history. There is no relevant family history pertinent to the presenting complaint. Exam Narrative: GENERAL: Well-appearing, well-nourished, and in no acute distress. HEAD: Normocephalic, atraumatic. EYES: PERRLA and EOMI. Bilateral eyes appear mildly injected with very mild swelling to the conjunctiva. No copious amount of discharge noted. ENT: Nares with erythema edema noted bilaterally, no rhinorrhea or epistaxis. Mucous membranes moist. posterior pharynx with some postnasal drip. Bilateral TMs have a little bit of fluid behind them but no erythema or foreign bodies the canal. NECK: Supple. No lymphadenopathy CHEST: Clear to auscultation. No respiratory distress. HEART: Regular rate and rhythm. No murmur heard. Normal peripheral pulses. ABDOMEN: Soft, nontender, nondistended, normal active bowel sounds. EXTREMITIES: Normal range of motion. No edema. SKIN: Warm, dry, no rash. NEURO: No focal deficits. Alert and oriented x3. Course Course Level of Care: Express Care Visit Vital Signs Vital signs: Vital Signs Temperature 36.3 C L 04/09/25 12:47 Pulse Rate 61 04/09/25 12:47 Respiratory Rate 18 04/09/25 12:47 Blood Pressure 140/76 04/09/25 12:47 Pulse Oximetry 100 04/09/25 12:47 Oxygen Delivery Room Air 04/09/25 12:47 Temperature 36.3 C L 04/09/25 12:47 Pulse Rate 61 04/09/25 12:47 Respiratory Rate 18 04/09/25 12:47 Blood Pressure 140/76 04/09/25 12:47 Pulse Oximetry 100 04/09/25 12:47 Oxygen Delivery Room Air 04/09/25 12:47 Vital signs reviewed. The patient has been informed that they may have pre-hypertension or Hypertension based on a BP reading in the department. I recommend that the patient call the primary care provider listed on their discharge instructions or a physician of their choice this week to arrange follow up for further evaluation of possible pre-hypertension or Hypertension MDM MDM Narrative Medical decision making narrative: discussed with patient that we will go and test her today for viruses such as COVID flu however I do believe this is most likely just a viral conjunctivitis likely due to sinus congestion. Discussed with patient she can take a daily antihistamine something such as Zyrtec, Claritin or Marce to help promote sinus drainage. I will prescribe her any time histamine eyedrops to help with her symptoms she should do a cool cloth to the eyes not heat. Also recommend doing a humidifier by her bed at night she does wear a CPAP so explained to her that she should be doing sinus rinses pretty consistently least once weekly to prevent sinus infections in the future. Patient verbalized understanding denies any other questions or concerns at this time. Differential Diagnosis Differential Diagnosis: Differential diagnosis: Allergic rhinitis, chronic sinusitis, tonsillitis, acute sinusitis, infectious mononucleosis, seasonal influenza, pertussis, diphtheria, meningococcal disease, viral syndrome, viral bronchitis, RSV, COVID-19 Critical Care Time Critical Care Time Critical Care Time: No Discharge Plan Discharge Clinical Impression: Acute viral conjunctivitis, Acute rhinosinusitis Patient Disposition: Home Condition: Stable Instructions: Antibiotic Form, Conjunctivitis (ED) Additional Instructions: Conjunctivitis is inflammation or irritation to the eye conjunctiva. This causes the white part of the eye to appear red or pink, which is why they call it pink eye. It can be caused by viruses, bacteria, allergies, injuries, chemicals or other eye diseses. Most pink eye (viral and bacterial) is contagious. It might affect the otehr eye and spread to other people. Everyone in the household shoule wash their hands often and not touch their eyes. Don't share towels, clothes, sheets, or blankets. After touching a pink eye, always wash your hands. Don't go to school until the pink eye is back to normal. Home Care: Gently clean any mucus from the eye with a soft, wet cloth. Everyone in the house should frequently wash their hands often with soap and water or hand chain pegger and avoid sharing towels. Do not use contact lenses unless the eye doctor has approved this. Call your doctor or go to the ER if your condition worsens or: Eye pain is not better or getting worse. Vision is blurry. Infection is not improved in 2 days. Eyelid or face becomes red or swollen. Fever occurs. Patient Language: German Prescriptions: New cetirizine [Zyrtec] 10 mg tablet 10 mg PO DAILY Qty: 30 0RF No Action docusate sodium [Colace] 100 mg Capsule 200 mg PO DAILY diltiazem HCl 360 mg capsule,extended release 24hr 360 mg PO DAILY calcium polycarbophil [FiberCon] 625 mg Tablet 1,250 mg PO DAILY magnesium 200 mg Tablet 400 mg PO DAILY Zyrtec 10 mg Capsule 10 mg PO DAILY atorvastatin 10 mg tablet 10 mg PO DAILY spironolactone 25 mg tablet 12.5 mg PO DAILY aspirin [Aspir-81] 81 mg Tablet,Delayed Release (Dr/Ec) 81 mg PO DAILY multivitamin Tablet 1 tablet PO DAILY Follow-up/Referrals: Chandu,Niels Liang Jr., MD [Primary Care Provider, Unknown] Time of Disposition: 13:07
[2025-04-09 13:21] LABS: EDCOVIDSCREEN Negative (Negative); EDINFLUASCREEN Negative (Negative); EDINFLUBSCREEN Negative (Negative)
== END 2025-04-09 13:36 | disposition home or self-care (01) ==
PROVIDERS: Emergency Provider Nurse Practitioner Family; PCP Hospitalist
DX: H10.33 Unspecified acute conjunctivitis, bilateral (principal); J01.90 Acute sinusitis, unspecified; Z20.822 Contact with and (suspected) exposure to COVID-19; I10 Essential (primary) hypertension; E78.5 Hyperlipidemia, unspecified; Z79.82 Long term (current) use of aspirin
CPT/HCPCS: 87426; 87804; 99213; G0463